=== PATIENT | female | born 1995 | race Caucasian/White ===

== ENCOUNTER 2016-08-10 19:17 | Emergency (ER) | payer BC, MEDICAID ==
[2016-08-10 19:37] VITALS: BP 136/68
[2016-08-10] MEDS ORDERED: Ketorolac INJ* 30 MG/ML 1 ML VIAL IV ONE (20:16)
[2016-08-10] MEDS ORDERED: diPHENhydraMINE IV* 50 MG/ML 1 ml VIAL (BENADRYL) IV ONE (20:16)
[2016-08-10] MEDS ORDERED: Metoclopramide IV* 5 MG/ML 2 ML VIAL IV ONE (20:16)
[2016-08-10] MEDS ORDERED: NS 0.9% 1000 ML* 1,000 ML IV ONE (20:17)
--- NOTE | 2016-08-11 12:20 | ED ---
Jose A Noriega Billy, scribed for Arash Arevalo MD on 08/10/16 at 2010 . Headache - HPI Summary HPI Summary: Patient is a 20 year-old female with a history of migraine headaches coming to the ED with a consistent headache for the last 2 days. She reports diffuse frontal throbbing, which she states is very typical of her previous headaches. She reports intermittent nausea, lightheadedness, dizziness, and photophobia over the last 2 days, but she has none of these symptoms at this time. Denies any vomiting. She usually takes Excedrin for her headaches. Her migraines occur approximately 1-2 times a month, although not regularly. - History Of Current Complaint Chief Complaint: EDHeadache Stated Complaint: HEADACHE X2DAYS Time Seen by Provider: 08/10/16 20:10 Hx Obtained From: Patient Onset/Duration: Gradual Onset, Started days ago, Still Present Initially Headache Was: Moderate Currently Pain Is: Moderate Timing: Constant Character: Migraine Location of Headache: Frontal Aggravating Factor: Bright Lights Allevating Factors: Nothing Associated Signs And Symptoms: Dizziness, Nausea, Visual Changes - photophobia, Other (Noted In Comments) - lightheadedness - Allergies/Home Medications Allergies/Adverse Reactions: Allergies Allergy/AdvReac Type Severity Reaction Status Date / Time Carbamazepine [From Tegretol] Allergy Rash Verified 06/13/16 13:28 Oxcarbazepine Allergy Rash Verified 06/13/16 13:28 [From Trileptal] Sulfa Drugs Allergy Rash Verified 06/13/16 13:28 PMH/Surg Hx/FS Hx/Imm Hx Endocrine/Hematology History: Denies: Hx Diabetes Cardiovascular History: Denies: Hx Congestive Heart Failure, Hx Hypertension, Hx Pacemaker/ICD History: Denies: Hx Dialysis, Hx Renal Disease Sensory History: Denies: Hx Hearing Aid Neurological History: Reports: Hx Migraine, Hx Seizures Psychiatric History: Denies: Hx Panic Disorder Infectious Disease History: No Infectious Disease History: Denies: Traveled Outside the [place] in Last 30 Days - Family History Known Family History: Positive: Other - Migraines Negative: Hypertension, Diabetes - Social History Alcohol Use: Occasionally Hx Substance Use: No Substance Use Type: Reports: None Substance Use Comment - Amount & Last Used: last used "1 month ago" Hx Tobacco Use: No Smoking Status (MU): Never Smoked Tobacco Review of Systems Positive: Photophobia - none at this time Positive: Nausea. Negative: Vomiting Neurological: Other - lightheaded, dizzy Positive: Headache All Other Systems Reviewed And Are Negative: Yes Physical Exam Triage Information Reviewed: Yes Vital Signs On Initial Exam: Initial Vitals Temp Pulse Resp BP Pulse Ox 98 F 96 18 136/68 100 08/10/16 19:35 08/10/16 19:35 08/10/16 19:35 08/10/16 19:35 08/10/16 19:35 Vital Signs Reviewed: Yes Appearance: Positive: Well-Appearing, No Pain Distress Skin: Positive: Warm, Skin Color Reflects Adequate Perfusion, Dry Head/Face: Positive: Normal Head/Face Inspection Eyes: Positive: Normal ENT: Positive: Normal ENT inspection Neck: Positive: Supple, Nontender Respiratory/Lung Sounds: Positive: Clear to Auscultation, Breath Sounds Present Cardiovascular: Positive: RRR Abdomen Description: Positive: Nontender, Soft Bowel Sounds: Positive: Present Musculoskeletal: Positive: Normal Neurological: Positive: Normal, Sensory/Motor Intact, Alert, Oriented to Person Place, Time, CN Intact II-III Psychiatric: Positive: Normal, Affect/Mood Appropriate AVPU Assessment: Alert Diagnostics - Vital Signs Vital Signs Temp Pulse Resp BP Pulse Ox 08/10/16 19:35 98 F 96 18 136/68 100 - Laboratory Lab Statement: Any lab studies that have been ordered have been reviewed, and results considered in the medical decision making process. Re-Evaluation - Re-Evaluation First Eval Re-Evaluation Time: 22:20 Change: Improved Headache Course/Dx - Course Course Of Treatment: Katelynn Padilla presented with a typical migraine that she had had for two days. A left-sided, throbbing HERNANDEZ accomanied by nausea. She got better with a 'migraine cocktail' of toradol, benadryl, reglan and IV fluids. - Diagnoses Provider Diagnoses: Migraine Discharge - Discharge Plan Condition: Stable Disposition: HOME Patient Education Materials: Migraine Headache (ED) Referrals: Zenobia Wright MD [Primary Care Provider] - The documentation as recorded by the Jose A gonzáles Billy accurately reflects the service I personally performed and the decisions made by me, Arash Arevalo MD.
== END 2016-08-10 23:36 | disposition home or self-care (01) ==
LOC: ED 19:17
DX: G43.909 Migraine, unspecified, not intractable, without status migrainosus (principal)
CPT/HCPCS: 96360; 96365; 96374; 96375; 99282; J1200; J1885; J2765

== ENCOUNTER 2016-08-26 06:13 | Day surgery (SDC) | payer BC ==
[~2016-08-26 06:13] MED LIST: Buffered Lidocaine 1% SYR 3ML* 3 ML/SYR SYRINGE INTRADERM ONE; Buffered Lidocaine 1% SYR 3ML* 3 ML/SYR SYRINGE ONE; Dexamethasone IV* 4 MG/ML 1 ML (4 MG) IV SLOW PU ONE; Dexamethasone IV* 4 MG/ML 1 ML (4 MG) ONE; Famotidine IV* 10 MG/ML 2 ML (20 mg) IV ONE; Famotidine IV* 10 MG/ML 2 ML (20 mg) ONE; ceFAZolin 2 GM PREMIX (*) 2 GM/50 ML BAG IVPB ONE
[2016-08-26 06:44] LABS: UR Preg Internal Control QC Line Present
[2016-08-26] MEDS ORDERED: methylPREDNISolone ACETATE 80* 80 MG/ML 1 ML VIAL ONE (07:05)
[2016-08-26] MEDS ORDERED: EPINEPHrine AMP 1 MG/ML ONE (07:06)
[2016-08-26] MEDS ORDERED: Bupivacaine 0.5% SDV PF* 30 ML VIAL ONE (07:06)
[2016-08-26] MEDS ORDERED: DiMENhydriNATE IV* 50 MG/ML VIAL IV PUSH PRN (07:19)
[2016-08-26] MEDS ORDERED: oxyCODONE/Acetamin 5/325 MG* TAB PO PRN (07:19)
[2016-08-26] MEDS ORDERED: fentaNYL* 50 MCG/ML 2 ML VIAL (100 MCG VIAL) IV PRN (07:19)
[2016-08-26] MEDS ORDERED: Ondansetron INJ* 2 MG/ML VIAL IV PRN (07:19)
[2016-08-26] MEDS ORDERED: fentaNYL* 50 MCG/ML 5 ML VIAL (250 MCG VIAL) ONE (07:21)
[2016-08-26] MEDS ORDERED: Lidocaine 2% MPF* 2 ML VIAL ONE (07:21)
[2016-08-26] MEDS ORDERED: Ketorolac INJ* 30 MG/ML 1 ML VIAL ONE (07:21)
[2016-08-26] MEDS ORDERED: Midazolam* 1 MG/ML 5 ML VIAL (5 MG) ONE (07:21)
[2016-08-26] MEDS ORDERED: Ondansetron INJ* 2 MG/ML VIAL ONE (07:21)
[2016-08-26] MEDS ORDERED: Propofol* 10 MG/ML 20 ML BTL IV PUSH ONE (07:21)
[2016-08-26] MEDS ORDERED: Phenylephrine IV* 40 MCG/ML 10 ML SYRINGE ONE (07:47)
[2016-08-26] MEDS ORDERED: EPHEDrine (Pressors)* 50 MG/ML VIAL ONE (07:47)
[2016-08-26] MEDS ORDERED: fentaNYL* 50 MCG/ML 2 ML VIAL (100 MCG VIAL) ONE (09:11)
[2016-08-26] MEDS ORDERED: oxyCODONE/Acetamin 5/325 MG* TAB ONE (09:23)
[2016-08-26 10:18] VITALS: BP 110/79
--- NOTE | 2016-08-27 15:11 | OP ---
DATE OF OPERATION: 08/26/16 - [facility] DATE OF : 89 SURGEON: Shannan Nova MD [employer] CHIEF: ANNE MARIE Lawrence ANESTHESIOLOGIST: Dr. Prado. ANESTHESIA: General. PRE-OP DIAGNOSES: Right knee chronic pain and recurrent effusions. POST-OP DIAGNOSIS: Right knee anterior synovitis with impingement. OPERATIVE PROCEDURE: Right knee arthroscopy with anterior synovectomy and synovial biopsy. INDICATIONS: Ms. Padilla is a 20-year-old female with several months of right knee pain and recurrent effusions. Radiographs and MRI failed to show a specific ligamentous or meniscal tear. I felt that the patient had large amounts of anterior soft tissue and possible medial plica. The patient failed conservative treatment with antiinflammatories, pain medication, and physical therapy. She continued to have severe pain and effusion limiting her daily activities. She wished to proceed with right knee diagnostic arthroscopy. Informed consent was obtained from the patient. She understood the risks of the procedure included but were not limited to bleeding, infection, damage to nearby structures, continued pain, need for further surgery, stroke, heart attack, blood clot, and . She wished to proceed. SPECIMEN: Synovial specimens from the right knee joint sent to Pathology for evaluation. ESTIMATED BLOOD LOSS: Less than 25 cc. COMPLICATIONS: None. INTRAOPERATIVE FINDINGS: Intraoperatively, the patient had no obvious meniscal or ligamentous tear. Her cartilage was intact without any degenerative changes. She had very small medial plica but she did have a large amount of anterior synovitis and soft tissue which impinge with knee range of motion in the patellofemoral compartment. DESCRIPTION OF PROCEDURE: Ms. Padilla was identified in the preanesthesia unit. Her right lower extremity was marked as the correct operative side. Informed consent was signed and placed in the chart. The patient was taken to the operating room and placed under general anesthesia. The right lower extremity was prepped and draped in the usual sterile fashion. Preop time-out was made to correctly identify the patient's side and site. Appropriate perioperative antibiotics were given within 1 hour of incision. Standard 0.5-cm anterolateral portal incision was made with a 15-blade and carried down through the capsule. The trocar was introduced. As soon as the light and water sources were turned on, there was immediate visualization of the suprapatellar pouch. A tour of the knee joint was performed. Suprapatellar pouch had no obvious abnormality. Patellofemoral compartment showed no obvious cartilage degeneration. There was a large amount of soft tissue and synovitis anteriorly in the knee joint, which did impinge in the patellofemoral compartment medially with range of motion of the knee. Patella tracked well. A small medial plica. Medial gutter showed no loose body. Medial compartment showed no obvious meniscal tear or cartilage changes. ACL appeared to be intact. Once again, a large amount of anterior soft tissue and synovitis was noted. The knee was placed in figure-of-4 position. Lateral compartment showed no cartilage damage or meniscal tear. Under direct visualization, a medial portal incision was made with a 15 blade. A probe was introduced and a second tour of the knee joint was performed. No additional findings were noted. Shaver and radiofrequency ablation wand were used to perform anterior synovectomy. Specimen was sent for synovial biopsy to Pathology. Soft tissue was cleared in a conservative fashion until there was no longer impingement with knee range of motion. The knee was copiously irrigated with sterile saline. The instruments were carefully removed and the incisions were closed using interrupted 3-0 nylon suture. An intraarticular injection of 8 cc of 0.5% Marcaine was placed in the knee joint. The patient's incisions were dressed with Xeroform, 4x4's, Webril, Celestino wrap, and cold pack. Her anesthesia was reversed and she was taken to the PACU in stable condition. Intended weightbearing will be weightbearing as tolerated. Intended DVT prophylaxis will be aspirin. [id number]/[facility] #: [id number] JEREMIAH
== END 2016-08-26 10:09 | disposition home or self-care (01) ==
LOC: OR 06:13
PROVIDERS: ATTEND Orthopaedic Surgery Adult Reconstructive Orthopaedic Surgery
DX: M65.861 Other synovitis and tenosynovitis, right lower leg (principal); M25.861 Other specified joint disorders, right knee; G40.909 Epilepsy, unspecified, not intractable, without status epilepticus; F90.9 Attention-deficit hyperactivity disorder, unspecified type
CPT/HCPCS: 81025; 88305; A9270-GY; J0171; J0690; J1040; J1100; J1885; J2250; J2405; J2704; J3010

== ENCOUNTER 2016-10-10 23:06 | Emergency (ER) | payer BC ==
[2016-10-10 23:14] VITALS: BP 131/80
[2016-10-11 01:12] LABS: UR Preg Internal Control QC Line Present
[2016-10-11 01:50] LABS: Urine Bilirubin Negative (Negative); Urine Glucose Negative (Negative); Urine Nitrite Negative (Negative)
--- NOTE | 2016-10-12 09:19 | ED ---
Sid Noriega Aidan, scribed for Romulo Beal MD on 10/11/16 at 0218 . Dizziness - HPI Summary HPI Summary: 20 y/o female presents to the ED with a complaint of acute, moderate episodes of dizziness and lightheadedness that began yesterday. Movement and standing up aggravates her dizziness. Associated symptoms include some weakness earlier today, dark urine and nausea. Pt denies any body aches, vomiting, diarrhea, fever, sweats, chills, CP, SOB, abdominal pain, or sore throat. She claims to be eating and drinking normally. Her last period occurred at the beginning of last month. - History Of Current Complaint Chief Complaint: EDDizziness Stated Complaint: WEAKNESS/LIGHT HEADED/DIZZY Time Seen by Provider: 10/11/16 01:04 Hx Obtained From: Patient Onset/Duration: Still Present Timing: Constant Severity Initially: Moderate Severity Currently: Mild Character: Lightheaded, Weak, Dizzy Aggravating Factor(s): Supine To Erect, Other - movement Alleviating Factor(s): Other - unknown Associated Signs And Symptoms: Positive: Nausea, Other: - weakness, dark urine - Allergies/Home Medications Allergies/Adverse Reactions: Allergies Allergy/AdvReac Type Severity Reaction Status Date / Time Carbamazepine [From Tegretol] Allergy Rash Verified 08/26/16 06:31 Oxcarbazepine Allergy Rash Verified 08/26/16 06:31 [From Trileptal] Sulfa Drugs Allergy Rash Verified 08/26/16 06:31 PMH/Surg Hx/FS Hx/Imm Hx Endocrine/Hematology History: Denies: Hx Diabetes Cardiovascular History: Denies: Hx Congestive Heart Failure, Hx Hypertension, Hx Pacemaker/ICD History: Denies: Hx Dialysis, Hx Renal Disease Sensory History: Reports: Hx Contacts or Glasses - GLASSES Denies: Hx Hearing Aid Opthamlomology History: Reports: Hx Contacts or Glasses - GLASSES Neurological History: Reports: Hx Migraine - FEW TIMES PER MONTH TREATS WITH EXCEDRIN MIGRAINE, Hx Seizures - FOCAL SEIZURES- LAST ONE YEARS AGO- ON MEDICATION FOR Psychiatric History: Denies: Hx Panic Disorder - Surgical History Surgery Procedure, Year, and Place: - 2 YEARS AGO-[place] Hx Anesthesia Reactions: No Infectious Disease History: No Infectious Disease History: Denies: Traveled Outside the [place] in Last 30 Days - Family History Known Family History: Positive: Other - Migraines Negative: Hypertension, Diabetes Family History: R & n/C - Social History Occupation: Employed Full-time Lives: With Family Alcohol Use: None Hx Substance Use: No Substance Use Type: Reports: None Substance Use Comment - Amount & Last Used: last used "1 month ago" Hx Tobacco Use: No Smoking Status (MU): Never Smoked Tobacco Review of Systems Constitutional: Other - dizziness/lightheadedness Negative: Fever, Chills, Fatigue, Skin Diaphoresis Negative: Photophobia, Blurred Vision, Diplopia, Drainage, Erythema Negative: Epistaxis, Dental Pain, Sore Throat, Ear Ache, Nasal Discharge Negative: Palpitations, Chest Pain Negative: Shortness Of Breath, Cough Positive: Nausea. Negative: Abdominal Pain, Vomiting, Diarrhea Genitourinary: Other - dark urine Negative: burning, dysuria, discharge, frequency, flank pain, hematuria, incontinence, pain, urgency Negative: Arthralgia, Myalgia, Decreased ROM, Edema Negative: Rash, Bruising Positive: Weakness. Negative: Headache, Paresthesia, Numbness, Syncope, Slurred Speech Negative: Anxious, Depressed All Other Systems Reviewed And Are Negative: Yes Physical Exam - Summary Physical Exam Summary: Constitutional: Well-developed, Well-nourished, Alert. (-) Distressed Skin: Warm, Dry HENT: Normocephalic; Atraumatic Eyes: Conjunctiva normal Neck: Musculoskeletal ROM normal neck. (-) JVD, (-) Stridor, (-) Tracheal deviation Cardio: Rhythm regular, rate normal, Heart sounds normal; Intact distal pulses; The pedal pulses are 2+ and symmetric. Radial pulses are 2+ and symmetric. (-) Murmur Pulmonary/Chest wall: Effort normal. (-) Respiratory distress, (-) Wheezes, (-) Rales Abd: Soft, (-) Tenderness, (-) Distension, (-) Guarding, (-) Rebound Musculoskeletal: (-) Edema Lymph: (-) Cervical adenopathy Neuro: Alert, Oriented x3 Psych: Mood and affect Normal DRY MUCOUS MEMBRANES Triage Information Reviewed: Yes Vital Signs On Initial Exam: Initial Vitals Temp Pulse Resp BP Pulse Ox 97.3 F 99 20 131/80 100 10/10/16 23:11 10/10/16 23:11 10/10/16 23:11 10/10/16 23:11 10/10/16 23:11 Vital Signs Reviewed: Yes - Angelique Coma Scale Coma Scale Total: 15 Diagnostics - Vital Signs Vital Signs Temp Pulse Resp BP Pulse Ox 10/10/16 23:11 97.3 F 99 20 131/80 100 - Laboratory Lab Results: Lab Results 10/11/16 Range/Units 01:00 Urine Color Yellow Urine Appearance Clear Urine pH 6.0 (5-9) Ur Specific Maud 1.026 (1.010-1.030) Urine Protein Negative (Negative) Urine Ketones Negative (Negative) Urine Blood Negative (Negative) Urine Nitrate Negative (Negative) Urine Bilirubin Negative (Negative) Urine Urobilinogen Negative (Negative) Ur Leukocyte Esterase Negative (Negative) Urine Glucose Negative (Negative) Urine Ascorbic Acid * H (Negative) Urine Test Negative (Negative) Lab Statement: Any lab studies that have been ordered have been reviewed, and results considered in the medical decision making process. Dizzy Course/Dx - Course Course Of Treatment: Pt is tollerating oral fluids and ambulation. - Diagnoses Provider Diagnoses: Dehydration Discharge - Discharge Plan Condition: Stable Disposition: HOME Discharge Disposition Comment: Please follow up with your primary care physician within 2 days. Patient Education Materials: Dehydration (ED) Forms: *Work Release Referrals: Zenobia Wright MD [Primary Care Provider] - The documentation as recorded by the Sid gonzáles Aidan accurately reflects the service I personally performed and the decisions made by , Romulo Beal MD.
== END 2016-10-11 02:42 | disposition home or self-care (01) ==
LOC: ED 23:06
DX: E86.0 Dehydration (principal); G40.909 Epilepsy, unspecified, not intractable, without status epilepticus; Z88.2 Allergy status to sulfonamides
CPT/HCPCS: 81003; 81025; 99282

== ENCOUNTER → 2017-01-27 12:57 | Emergency (ER) | payer SELFPAY ==
[2017-01-27 13:11] VITALS: BP 127/64
--- NOTE | 2017-01-27 14:33 | RAD ---
Indication: Right rib injury. 4 views of the right ribs are reviewed. There is a fracture of the right seventh and eighth rib anterolaterally. The right eighth rib may be slightly displaced. IMPRESSION: Likely fractures of the right seventh and eighth ribs anterolaterally.
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
== END | disposition home or self-care (01) ==
LOC: ED 12:57
DX: S22.41XA Multiple fractures of ribs, right side, initial encounter for closed fracture (principal); W50.0XXA Accidental hit or strike by another person, initial encounter; Y93.9 Activity, unspecified; Y92.9 Unspecified place or not applicable; Y99.9 Unspecified external cause status
CPT/HCPCS: 99282

== ENCOUNTER 2017-01-28 20:27 | Emergency (ER) | payer SELFPAY ==
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
[2017-01-29] MEDS ORDERED: oxyCODONE/Acetamin 5/325 MG* TAB PO ONE (00:44)
[2017-01-29 01:29] VITALS: BP 136/70
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
== END 2017-01-29 01:27 | disposition home or self-care (01) ==
LOC: ED 20:27
DX: S22.39XD Fracture of one rib, unspecified side, subsequent encounter for fracture with routine healing (principal); W50.1XXD Accidental kick by another person, subsequent encounter; R05 Cough; R06.02 Shortness of breath; G43.909 Migraine, unspecified, not intractable, without status migrainosus; R56.9 Unspecified convulsions; Z88.2 Allergy status to sulfonamides; Z88.8 Allergy status to other drugs, medicaments and biological substances
CPT/HCPCS: 71020; 99281

== ENCOUNTER 2017-04-19 22:22 | Emergency (ER) | payer SELFPAY ==
[2017-04-20] MEDS ORDERED: oxyCODONE/Acetamin 5/325 MG* TAB PO ONE (01:33)
--- NOTE | 2017-04-20 01:33 | ED ---
HPI Chest Pain - HPI Summary HPI Summary: 21F presents with left lateral rib pain for couple days. She had fracture a month ago of her ribs. She takes the area was healing well but she feels that she is moving her arm more and that it is pulling on the area. She was at work and had an intense pain. She denies any new injury. She states when she takes a deep breath it hurts her ribs. She denies any SOB though. She denies any family history of blood clots or recent travel. She denies any swelling in her calfs or pain there. she denies any chest pain stating it is superficial rib pain. she denies any cough. - History of Current Complaint Chief Complaint: EDChestWallPain Time Seen by Provider: 04/20/17 00:31 Pain Intensity: 10 - Allergy/Home Medications Allergies/Adverse Reactions: Allergies Allergy/AdvReac Type Severity Reaction Status Date / Time Carbamazepine [From Tegretol] Allergy Rash Verified 04/19/17 22:54 Oxcarbazepine Allergy Rash Verified 04/19/17 22:54 [From Trileptal] Sulfa Drugs Allergy Rash Verified 04/19/17 22:54 PMH/Surg Hx/FS Hx/Imm Hx Endocrine/Hematology History: Denies: Hx Diabetes Cardiovascular History: Denies: Hx Congestive Heart Failure, Hx Hypertension, Hx Pacemaker/ICD History: Denies: Hx Dialysis, Hx Renal Disease Sensory History: Reports: Hx Contacts or Glasses - GLASSES Denies: Hx Hearing Aid Opthamlomology History: Reports: Hx Contacts or Glasses - GLASSES Neurological History: Reports: Hx Migraine - FEW TIMES PER MONTH TREATS WITH EXCEDRIN MIGRAINE, Hx Seizures - FOCAL SEIZURES- LAST ONE YEARS AGO- ON MEDICATION FOR Psychiatric History: Denies: Hx Panic Disorder - Surgical History Surgery Procedure, Year, and Place: - 2 YEARS AGO-[place] Hx Anesthesia Reactions: No Infectious Disease History: No Infectious Disease History: Denies: Traveled Outside the [place] in Last 30 Days - Family History Known Family History: Positive: None, Other - Migraines Negative: Hypertension, Diabetes, Blood Disorder Family History: R & n/C - Social History Alcohol Use: Rare Hx Substance Use: No Substance Use Type: Reports: None Substance Use Comment - Amount & Last Used: last used "1 month ago" Hx Tobacco Use: No Smoking Status (MU): Never Smoked Tobacco Review of Systems Negative: Fever Positive: Other - left lateral rib pain Negative: Shortness Of Breath All Other Systems Reviewed And Are Negative: Yes Physical Exam Triage Information Reviewed: Yes Vital Signs On Initial Exam: Initial Vitals Temp Pulse Resp BP Pulse Ox 98 F 89 16 126/78 100 04/19/17 22:55 04/19/17 22:55 04/19/17 22:55 04/19/17 22:55 04/19/17 22:55 Vital Signs Reviewed: Yes Appearance: Positive: Pain Distress Skin: Positive: Warm, Dry Head/Face: Positive: Normal Head/Face Inspection Eyes: Positive: Normal, EOMI, SUZANNE, Conjunctiva Clear ENT: Positive: Normal ENT inspection, Pharynx normal, TMs normal Respiratory/Lung Sounds: Positive: Clear to Auscultation, Breath Sounds Present , Other - tender over lateral left ribs 7-10 to palpation Cardiovascular: Positive: Normal, RRR - [place] Coma Scale Coma Scale Total: 15 Diagnostics - Vital Signs Vital Signs Temp Pulse Resp BP Pulse Ox 04/20/17 01:00 76 17 117/70 99 04/20/17 00:30 84 102/62 99 04/20/17 00:29 95 99 04/19/17 22:55 98 F 89 16 126/78 100 - Laboratory Lab Statement: Any lab studies that have been ordered have been reviewed, and results considered in the medical decision making process. Chest Pain Course/Dx - Course Course Of Treatment: 21F presents with left lateral rib pain for couple days. She had fracture a month ago of her ribs. She takes the area was healing well but she feels that she is moving her arm more and that it is pulling on the area. She was at work and had an intense pain. She denies any new injury. She states when she takes a deep breath it hurts her ribs. She denies any SOB though. on exam tender over ribs 7-10 on left lateral aspect. xray read as normal by me. discused with patient she is essentaially because she took ibuprofen and she is having too much break through pain. discussed with give one percocet and told to follow up with primary. patient understands and agrees with plan. - Chest Pain Differential Diagnosis/HQI/PQRI: Lower Respiratory Infection, Pulmonary Embolism , Other: - fracture, costrochondritis - Diagnoses Provider Diagnoses: Rib pain Discharge - Discharge Plan Condition: Good Disposition: HOME Patient Education Materials: Chest Wall Pain (ED) Referrals: Zenobia Wright MD [Primary Care Provider] - Additional Instructions: Take deep breath throughout the day Take Ibuprofen or Tylenol for pain every 6 hours Follow up with primary care physician within 5 days Return to ED if develop new productive cough with fever, or any new or worsening symptoms
[2017-04-20 01:47] VITALS: BP 113/49
--- NOTE | 2017-04-20 07:48 | RAD ---
HISTORY: Left-sided rib pain COMPARISONS: January 27, 2017 VIEWS: 6, Frontal view of the chest with frontal and oblique views of the left hemithorax FINDINGS: There is no displaced rib fracture or pneumothorax. The visualized lungs are clear. The right-sided fractures noted on the previous examination are not well-visualized on these images, including dedicated views of the left hemithorax. IMPRESSION: NO DISPLACED RIB FRACTURE OR PNEUMOTHORAX. IF THERE IS PERSISTENT CLINICAL CONCERN FOR OSSEOUS PATHOLOGY OF THE RIBS, BONE SCANNING MAY BE MORE SENSITIVE.
== END 2017-04-20 01:59 | disposition home or self-care (01) ==
LOC: ED 22:22
DX: R07.81 Pleurodynia (principal)
CPT/HCPCS: 99282; A9270-GY

== ENCOUNTER 2017-06-28 16:23 | Emergency (ER) | payer SELFPAY ==
[2017-06-28 16:39] VITALS: BP 132/75
[2017-06-28 17:07] LABS: Hematocrit 42 % (35-47); Hemoglobin 14.1 g/dl (12.0-16.0); Mean Corpuscular HGB Conc 33 g/dl (31-36); Mean Corpuscular Hemoglobin 28 pg (27-31); Mean Corpuscular Volume 84 fL (80-97); Mean Platelet Volume 7 um3 (7.4-10.4); Red Blood Count 5.05 10^6/ul (4.0-5.4); Red Cell Distribution Width 15 % (10.5-15); Urine Bilirubin Negative (Negative); Urine Glucose Negative (Negative); Urine Nitrite Negative (Negative); White Blood Count 10.3 10^3/ul (3.5-10.8)
[2017-06-28 17:20] LABS: ALT 10 U/L (7-52); AST 12 U/L (13-39); Albumin 4.7 g/dL (3.2-5.2); Alkaline Phosphatase 53 U/L (34-104); Anion Gap 8 mmol/L (2-11); BUN/Creatinine Ratio 15.3 (8-20); Blood Urea Nitrogen 11 mg/dL (6-24); CO2 Carbon Dioxide 22 mmol/L (22-32); Calcium 9.6 mg/dL (8.6-10.3); Chloride 107 mmol/L (101-111); EGFR African American 131.5 (>60); EGFR Non-African American 102.3 (>60); Globulin 3.1 g/dL (2-4); Glucose 83 mg/dL (70-100); Potassium 3.5 mmol/L (3.5-5.0); Sodium 137 mmol/L (133-145); Total Protein 7.8 g/dL (6.4-8.9)
[2017-06-28 17:23] LABS: Benzodiazepine Urine Screen None Detected (None Detect)
--- NOTE | 2017-06-28 17:23 | ED ---
Psychiatric Complaint - HPI Summary HPI Summary: 21F presents with suicidal thoughts last night. She lost her mother 3 months ago and since then has been more depressed. She has history of depression and it has been getting worst. She started to cut last night. She denies any plan for suicide. She denies any drug or ETOH use. She spoke with her boss today who advised her to come in for an exam. She sees [facility]. - History Of Current Complaint Chief Complaint: EDMentalHealth Time Seen by Provider: 06/28/17 16:48 - Allergies/Home Medications Allergies/Adverse Reactions: Allergies Allergy/AdvReac Type Severity Reaction Status Date / Time Carbamazepine [From Tegretol] Allergy Rash Verified 04/19/17 22:54 Oxcarbazepine Allergy Rash Verified 04/19/17 22:54 [From Trileptal] Sulfa Drugs Allergy Rash Verified 04/19/17 22:54 PMH/Surg Hx/FS Hx/Imm Hx Endocrine/Hematology History: Denies: Hx Diabetes Cardiovascular History: Denies: Hx Congestive Heart Failure, Hx Hypertension, Hx Pacemaker/ICD History: Denies: Hx Dialysis, Hx Renal Disease Sensory History: Reports: Hx Contacts or Glasses - GLASSES Denies: Hx Hearing Aid Opthamlomology History: Reports: Hx Contacts or Glasses - GLASSES Neurological History: Reports: Hx Migraine - FEW TIMES PER MONTH TREATS WITH EXCEDRIN MIGRAINE, Hx Seizures - FOCAL SEIZURES- LAST ONE YEARS AGO- ON MEDICATION FOR Psychiatric History: Denies: Hx Panic Disorder - Surgical History Surgery Procedure, Year, and Place: - 2 YEARS AGO-[place] Hx Anesthesia Reactions: No Infectious Disease History: No Infectious Disease History: Denies: Traveled Outside the US in Last 30 Days - Family History Known Family History: Positive: None, Other - Migraines Negative: Hypertension, Diabetes, Blood Disorder Family History: R & n/C - Social History Alcohol Use: Rare Hx Substance Use: No Substance Use Type: Reports: None Substance Use Comment - Amount & Last Used: last used "1 month ago" Hx Tobacco Use: No Smoking Status (MU): Never Smoked Tobacco Review of Systems Negative: Fever Negative: Chest Pain Negative: Shortness Of Breath Positive: Depressed All Other Systems Reviewed And Are Negative: Yes Physical Exam Triage Information Reviewed: Yes Vital Signs On Initial Exam: Initial Vitals Temp Pulse Resp BP Pulse Ox 97.8 F 96 16 132/75 100 06/28/17 16:36 06/28/17 16:36 06/28/17 16:36 06/28/17 16:36 06/28/17 16:36 Vital Signs Reviewed: Yes Appearance: Positive: Well-Appearing Skin: Positive: Warm, Dry Head/Face: Positive: Normal Head/Face Inspection Eyes: Positive: Normal, Conjunctiva Clear Respiratory/Lung Sounds: Positive: Clear to Auscultation, Breath Sounds Present Cardiovascular: Positive: Normal, RRR Abdomen Description: Positive: Nontender, Soft Bowel Sounds: Positive: Present Musculoskeletal: Positive: Normal Neurological: Positive: Normal Psychiatric: Positive: Depressed Diagnostics - Vital Signs Vital Signs Temp Pulse Resp BP Pulse Ox 06/28/17 16:36 97.8 F 96 16 132/75 100 - Laboratory Lab Results: Lab Results 06/28/17 06/28/17 06/28/17 Range/Units 16:55 16:55 16:55 WBC 10.3 (3.5-10.8) 10^3/ul RBC 5.05 (4.0-5.4) 10^6/ul Hgb 14.1 (12.0-16.0) g/dl Hct 42 (35-47) % MCV 84 (80-97) fL MCH 28 (27-31) pg MCHC 33 (31-36) g/dl RDW 15 (10.5-15) % Plt Count 357 (150-450) 10^3/ul MPV 7 L (7.4-10.4) um3 Neut % (Auto) 51.1 (38-83) % Lymph % (Auto) 39.8 (25-47) % [place] % (Auto) 7.5 (1-9) % Eos % (Auto) 0.9 (0-6) % Baso % (Auto) 0.7 (0-2) % Absolute Neuts (auto) 5.2 (1.5-7.7) 10^3/ul Absolute Lymphs (auto) 4.1 (1.0-4.8) 10^3/ul Absolute Monos (auto) 0.8 (0-0.8) 10^3/ul Absolute Eos (auto) 0.1 (0-0.6) 10^3/ul Absolute Basos (auto) 0.1 (0-0.2) 10^3/ul Absolute Nucleated RBC 0 10^3/ul Nucleated RBC % 0 Sodium 137 (133-145) mmol/L Potassium 3.5 (3.5-5.0) mmol/L Chloride 107 (101-111) mmol/L Carbon Dioxide 22 (22-32) mmol/L Anion Gap 8 (2-11) mmol/L BUN 11 (6-24) mg/dL Creatinine 0.72 (0.51-0.95) mg/dL Est GFR ( Amer) 131.5 (>60) Est GFR (Non-Af Amer) 102.3 (>60) BUN/Creatinine Ratio 15.3 (8-20) Glucose 83 (70-100) mg/dL Calcium 9.6 (8.6-10.3) mg/dL Total Bilirubin 0.30 (0.2-1.0) mg/dL AST 12 L (13-39) U/L ALT 10 (7-52) U/L Alkaline Phosphatase 53 (34-104) U/L Total Protein 7.8 (6.4-8.9) g/dL Albumin 4.7 (3.2-5.2) g/dL Globulin 3.1 (2-4) g/dL Albumin/Globulin Ratio 1.5 (1-3) TSH Pending Urine Color Straw Urine Appearance Clear Urine pH 7.0 (5-9) Ur Specific [place] 1.005 L (1.010-1.030) Urine Protein Negative (Negative) Urine Ketones Negative (Negative) Urine Blood Negative (Negative) Urine Nitrate Negative (Negative) Urine Bilirubin Negative (Negative) Urine Urobilinogen Negative (Negative) Ur Leukocyte Esterase Negative (Negative) Urine Glucose Negative (Negative) Salicylates Pending Acetaminophen Pending Serum Alcohol Pending Result Diagrams: 06/28/17 16:55 06/28/17 16:55 Lab Statement: Any lab studies that have been ordered have been reviewed, and results considered in the medical decision making process. Course/Dx - Course Course Of Treatment: 21F presents with suicidal thoughts last night. She lost her mother 3 months ago and since then has been more depressed. She has history of depression and it has been getting worst. She started to cut last night. She denies any plan for suicide. She denies any drug or ETOH use. She spoke with her boss today who advised her to come in for an exam. She sees [facility]. normal PE. medically clear for MHE. signed out to [place] pending MHE. - Differential Dx/Clinical Impression Differential Diagnosis/HQI/PQRI: Positive: Anxiety, Depression, Suicidal Ideation Provider Diagnosis: Depression Discharge - Discharge Plan Condition: Stable Disposition: OTHER Discharge Disposition Comment: signed out to [place] KENNEY pending MHE Referrals: Zenobia Wright MD [Primary Care Provider] -
[2017-06-28 17:31] LABS: Acetaminophen < 15 mcg/mL; Alcohol < 10 mg/dL (<10); Salicylate < 2.50 mg/dL (<30)
[2017-06-28 17:46] LABS: TSH (Thyroid Stimulating Horm) 2.81 mcIU/mL (0.34-5.60)
--- NOTE | 2017-06-28 23:51 | PN ---
Progress Note - Progress Note Date of Service: 06/28/17 SOAP: Subjective: [Patient was a sign out from Kristina Pitt PA-C at shift change pending psych eval. ] Objective: [CTA RRR] Assessment: [grief reaction] Plan: [decided by Dr Prado at 11pm that patient was safe to discharge home with diagnosis of grief reaction with close follow up outpatient. agreed with plan and so did patient's father. Discharge: stable to home Diagnosis: grief reaction ]
== END 2017-06-28 23:42 ==
LOC: ED 16:23
DX: F32.9 Major depressive disorder, single episode, unspecified (principal)
CPT/HCPCS: 36415; 80053; 80307; 80320; 80329; 81003; 84443; 85025; 99284; G0480

== ENCOUNTER 2017-08-02 11:55 | Emergency (ER) | payer BC ==
[2017-08-02 12:07] VITALS: BP 115/66
--- NOTE | 2017-08-02 12:28 | UC ---
Respiratory Complaint HPI - HPI Summary HPI Summary: 2 days of upper and lower respiratory congestion, chest is tight and center hurts with deep breathing - History of Current Complaint Chief Complaint: UCRespiratory Stated Complaint: CONGESTION EAR PAIN Time Seen by Provider: 08/02/17 12:16 Hx Obtained From: Patient Hx Last Menstrual Period: uses implanon ?: No Onset/Duration: Sudden Onset, Lasting Days - 2, Still Present Timing: Constant Severity Initially: Mild Severity Currently: Mild Character: Cough: Nonproductive Aggravating Factors: Nothing Alleviating Factors: Nothing Associated Signs And Symptoms: Positive: Pleuritic Chest Pain, URI, Nasal Congestion - Allergies/Home Medications Allergies/Adverse Reactions: Allergies Allergy/AdvReac Type Severity Reaction Status Date / Time Carbamazepine [From Tegretol] Allergy Rash Verified 08/02/17 11:57 Oxcarbazepine Allergy Rash Verified 08/02/17 11:57 [From Trileptal] Sulfa Drugs Allergy Rash Verified 08/02/17 11:57 Home Medications: Home Medications Adgdcxv-Vdhxobmdlfhyr-Oyuqsydd [Excedrin Extra Strength] 1 tab PO PRN 08/02/17 [ History] PMH/Surg Hx/FS Hx/Imm Hx Previously Healthy: No Neurological History: Seizures - Surgical History Surgical History: None Surgery Procedure, Year, and Place: - 2 YEARS [facility] - Family History Known Family History: Positive: None, Other - Migraines Negative: Hypertension, Diabetes, Blood Disorder - Social History Occupation: Employed Full-time Lives: With Family Alcohol Use: Rare Substance Use Type: None Substance Use Comment - Amount & Last Used: last used "1 month ago" Smoking Status (MU): Never Smoked Tobacco Review of Systems Constitutional: Fatigue ENT: Sore Throat - with cough, Ear Ache, Nasal Discharge, Sinus Congestion Respiratory: Cough Cardiovascular: Chest Pain - with cough Gastrointestinal: Negative Genitourinary: Negative Motor: Negative Neurovascular: Negative Musculoskeletal: Negative Neurological: Negative Is Patient Immunocompromised?: No All Other Systems Reviewed And Are Negative: Yes Physical Exam Triage Information Reviewed: Yes Appearance: Well-Appearing, No Pain Distress, Well-Nourished Vital Signs: Initial Vital Signs Temp 97.9 F 08/02/17 12:03 Pulse 90 08/02/17 12:03 Resp 18 08/02/17 12:03 BP 115/66 08/02/17 12:03 Pulse Ox 100 08/02/17 12:03 Vital Signs Reviewed: Yes Eye Exam: Normal Eyes: Positive: Conjunctiva Clear ENT Exam: Normal ENT: Positive: Normal ENT inspection, Hearing grossly normal, Pharynx normal, Nasal congestion, Nasal drainage, TMs normal, Uvula midline. Negative: Tonsillar swelling, Tonsillar exudate, Trismus, Muffled voice, Hoarse voice, Dental tenderness, Sinus tenderness Dental Exam: Normal Neck exam: Normal Neck: Positive: Supple, Nontender, No Lymphadenopathy Respiratory Exam: Normal Respiratory: Positive: Chest non-tender, Lungs clear, Normal breath sounds, No respiratory distress, No accessory muscle use Cardiovascular Exam: Normal Cardiovascular: Positive: RRR, No Murmur, Pulses Normal, Brisk Capillary Refill Musculoskeletal Exam: Normal Musculoskeletal: Positive: Strength Intact, ROM Intact, No Edema Neurological Exam: Normal Neurological: Positive: Alert, Muscle Tone Normal, Fatigued Psychological Exam: Normal Psychological: Positive: Normal Response To Family Skin Exam: Normal UC Diagnostic Evaluation - Laboratory O2 Sat by Pulse Oximetry: 100 Respiratory Course/Dx - Course Course Of Treatment: flonase, albuterol, zithromax, rest increase fluids follow with pcp prn - Differential Dx/Diagnosis Provider Diagnoses: Bronchitis Discharge - Discharge Plan Condition: Stable Disposition: HOME Prescriptions: Albuterol HFA INHALER* [Ventolin HFA Inhaler*] 2 puff INH Q4H PRN #1 mdi PRN Reason: cough/chest congestion Azithromycin TAB* [Zithromax TAB (Z-SEBASTIAN) 250 mg #6 tabs] 2 tab PO .TODAY, THEN 1 DAILY #1 sebastian Fluticasone NASAL SPRAY 50MCG* [Flonase NASAL SPRAY 50MCG*] 2 spray BOTH NARES DAILY #1 btl Patient Education Materials: Acute Bronchitis (ED) Forms: *Work Release Referrals: Zenobia Wright MD [Primary Care Provider] - If Needed
== END 2017-08-02 12:44 | disposition home or self-care (01) ==
LOC: UCEAST 11:55
DX: J40 Bronchitis, not specified as acute or chronic (principal); R56.9 Unspecified convulsions; Z88.2 Allergy status to sulfonamides; Z88.8 Allergy status to other drugs, medicaments and biological substances
CPT/HCPCS: 99212; G0463

== ENCOUNTER 2017-09-13 14:47 | Emergency (ER) | payer BC ==
[2017-09-13 16:16] LABS: ABS Basophils 0.1 10^3/ul (0-0.2); ABS Eosinophils 0.1 10^3/ul (0-0.6); ABS Lymphocytes 3.4 10^3/ul (1.0-4.8); ABS Monocytes 0.6 10^3/ul (0-0.8); ABS Neutrophils 4.6 10^3/ul (1.5-7.7); ABS Nucleated RBC 0 10^3/ul; Eosinophil % 1.5 % (0-6); Hematocrit 39 % (35-47); Hemoglobin 13.4 g/dl (12.0-16.0); Lymphocyte % 38.9 % (25-47); Mean Corpuscular HGB Conc 35 g/dl (31-36); Mean Corpuscular Hemoglobin 29 pg (27-31); Mean Corpuscular Volume 83 fL (80-97); Mean Platelet Volume 7 um3 (7.4-10.4); Nucleated Red Blood Cells % 0.1; Platelet Count 309 10^3/ul (150-450); Red Blood Count 4.66 10^6/ul (4.0-5.4); Red Cell Distribution Width 14 % (10.5-15); White Blood Count 8.7 10^3/ul (3.5-10.8)
[2017-09-13 16:33] LABS: EGFR Non-African American 103.9 (>60)
[2017-09-13 16:45] LABS: Urine Appearance Clear; Urine Blood Negative (Negative); Urine Color Straw; Urine Ketones Negative (Negative); Urine Protein Negative (Negative); Urine Specific Gravity 1.013 (1.010-1.030); Urine Urobilinogen Negative (Negative)
--- NOTE | 2017-09-13 17:19 | RAD ---
INDICATION: Left adnexal pain. COMPARISON: Comparison is made with a prior pelvic ultrasound from from September 25, 2015. TECHNIQUE: Multiple real-time transabdominal images of the pelvis were obtained. FINDINGS: The uterus is normal in size, shape and echogenicity. The uterus measured 6.4 x 2.8 x 3.4 cm. The endometrial echo measured 0.5 cm in thickness. The right ovary measured 3.9 x 2.1 x 2.7 cm. The left ovary measured 2.8 x 1.7 x 3.6 cm. There is vascular flow within both ovaries. No free intraperitoneal fluid is seen. IMPRESSION: NEGATIVE EXAM.
--- NOTE | 2017-09-13 18:12 | ED ---
Philippe Noriega Thomas, scribed for Arash Aervalo MD on 09/13/17 at 1636 . Abdominal Pain/Female - HPI Summary HPI Summary: The patient is a 21 year old female complaining of left-sided abdominal pain that was present when she woke up this morning and has progressively worsened throughout the day when she was lifting at work. The patient additionally complains of nausea. The patient denies urinary symptoms, diarrhea, and constipation. LMP was three months ago. She is on the implant. - History of Current Complaint Chief Complaint: EDAbdPain Stated Complaint: ABD PAIN Time Seen by Provider: 09/13/17 15:30 Hx Last Menstrual Period: uses implanon Onset/Duration: Lasting Hours - onset this AM, Still Present Timing: Constant Severity Initially: Mild Severity Currently: Severe Pain Intensity: 9 Pain Scale Used: 0-10 Numeric Location: Discrete At: LUQ, Discrete At: LLQ Alleviating Factor(s): Nothing Associated Signs and Symptoms: Positive: Nausea. Negative: Fever, Constipation , Urinary Symptoms, Diarrhea Allergies/Adverse Reactions: Allergies Allergy/AdvReac Type Severity Reaction Status Date / Time carbamazepine Allergy Rash Verified 09/13/17 14:57 oxcarbazepine Allergy Rash Verified 09/13/17 14:57 Sulfa (Sulfonamide Allergy Rash Verified 09/13/17 14:58 Antibiotics) PMH/Surg Hx/FS Hx/Imm Hx Endocrine/Hematology History: Denies: Hx Diabetes, Hx Thyroid Disease Cardiovascular History: Denies: Hx Congestive Heart Failure, Hx Hypertension, Hx Pacemaker/ICD Respiratory History: Denies: Hx Asthma, Hx Chronic Obstructive Pulmonary Disease (COPD) GI History: Denies: Hx Ulcer History: Denies: Hx Dialysis, Hx Renal Disease Sensory History: Reports: Hx Contacts or Glasses - GLASSES Denies: Hx Hearing Aid Opthamlomology History: Reports: Hx Contacts or Glasses - GLASSES Neurological History: Reports: Hx Migraine - FEW TIMES PER MONTH TREATS WITH EXCEDRIN MIGRAINE, Hx Seizures - FOCAL SEIZURES- LAST ONE YEARS AGO- ON MEDICATION FOR Denies: Other Neuro Impairments/Disorders Psychiatric History: Denies: Hx Eating Disorder, Hx Panic Disorder - Surgical History Surgery Procedure, Year, and Place: - 2 YEARS AGO-[place] Hx Anesthesia Reactions: No Infectious Disease History: No Infectious Disease History: Denies: Hx Hepatitis, Hx Human Immunodeficiency Virus (HIV), Traveled Outside the US in Last 30 Days - Family History Known Family History: Positive: Other - Migraines Negative: Hypertension, Diabetes, Blood Disorder - Social History Alcohol Use: Rare Hx Substance Use: No Substance Use Type: Reports: Marijuana Substance Use Comment - Amount & Last Used: last used "1 month ago" Hx Tobacco Use: No Smoking Status (MU): Never Smoked Tobacco Review of Systems Negative: Fever Positive: Abdominal Pain, Nausea. Negative: Diarrhea, Other - constipation Positive: no symptoms reported All Other Systems Reviewed And Are Negative: Yes Physical Exam - Summary Physical Exam Summary: Appearance: The patient is well-nourished in no acute distress and in no acute pain. Skin: The skin is warm and dry and skin color reflects adequate perfusion. HEENT: The head is normocephalic and atraumatic. The pupils are equal and reactive. The conjunctivae are clear and without drainage. Nares are patent and without drainage. Mouth reveals moist mucous membranes and the throat is without erythema and exudate. The external ears are intact. The ear canals are patent and without drainage. The tympanic membranes are intact. Neck: the neck is supple with full range of motion and non-tender. There are no carotid bruits. There is no neck vein distension. Respiratory: Chest is non-tender. Lungs are clear to auscultation and breath sounds are symmetrical and equal. Cardiovascular: Heart is regular rate and rhythm. There is no murmur or rub auscultated. There is no peripheral edema and pulses are symmetrical and equal. Abdomen: The abdomen is soft. She is tender to the LLQ and mildly in the RLQ. There are normal bowel sounds heard in all four quadrants and there is no organomegaly palpated. Musculoskeletal: There is no back tenderness noted. Extremities are non-tender with full range of motion. There is good capillary refill. There is no peripheral edema or calf tenderness elicited. Neurological: Patient is alert and oriented to person, place and time. The patient has symmetrical motor strength in all four extremities. Cranial nerves are grossly intact. Deep tendon reflexes are symmetrical and equal in all four extremities. Psychiatric: The patient has an appropriate affect and does not exhibit any anxiety or depression. Triage Information Reviewed: Yes Vital Signs On Initial Exam: Initial Vitals Temp Pulse Resp BP Pulse Ox 98.6 F 87 18 125/67 100 09/13/17 15:03 09/13/17 15:03 09/13/17 15:03 09/13/17 15:03 09/13/17 15:03 Vital Signs Reviewed: Yes Diagnostics - Vital Signs Vital Signs Temp Pulse Resp BP Pulse Ox 09/13/17 15:03 98.6 F 87 18 125/67 100 - Laboratory Lab Results: Lab Results 09/13/17 Range/Units 16:05 WBC 8.7 (3.5-10.8) 10^3/ul RBC 4.66 (4.0-5.4) 10^6/ul Hgb 13.4 (12.0-16.0) g/dl Hct 39 (35-47) % MCV 83 (80-97) fL MCH 29 (27-31) pg MCHC 35 (31-36) g/dl RDW 14 (10.5-15) % Plt Count 309 (150-450) 10^3/ul MPV 7 L (7.4-10.4) um3 Neut % (Auto) 52.3 (38-83) % Lymph % (Auto) 38.9 (25-47) % [place] % (Auto) 6.7 (1-9) % Eos % (Auto) 1.5 (0-6) % Baso % (Auto) 0.6 (0-2) % Absolute Neuts (auto) 4.6 (1.5-7.7) 10^3/ul Absolute Lymphs (auto) 3.4 (1.0-4.8) 10^3/ul Absolute Monos (auto) 0.6 (0-0.8) 10^3/ul Absolute Eos (auto) 0.1 (0-0.6) 10^3/ul Absolute Basos (auto) 0.1 (0-0.2) 10^3/ul Absolute Nucleated RBC 0 10^3/ul Nucleated RBC % 0.1 Result Diagrams: 09/13/17 16:05 09/13/17 16:05 Lab Statement: Any lab studies that have been ordered have been reviewed, and results considered in the medical decision making process. - Additional Comments Diagnostic Additional Comments: Ultrasound Pelvis. Interpreted by radiologist. Impression: "Negative exam" Dr. Arevalo has reviewed this report. Abdominal Pain Fem Course/Dx - Course Course Of Treatment: Ms. Padilla presented with a left sided abdominal pain and tenderness. Her W/U was negative and she was D/C'd to F/U if problems continue. She has no D/C but may need a pelvic exam if problems continue. She prefers to wait. "I just came in to be on the safe side". - Diagnoses Provider Diagnoses: Abdominal pain Discharge - Discharge Plan Condition: Stable Disposition: HOME Patient Education Materials: Abdominal Pain (ED) Referrals: Zenobia Wright MD [Primary Care Provider] - 3 Days Additional Instructions: Follow up with your primary care physician in three days. Return to the emergency department for any new or worsening symptoms. The documentation as recorded by the Philippe gonzáles Thomas accurately reflects the service I personally performed and the decisions made by me, Arash Arevalo MD.
[2017-09-13 18:24] VITALS: BP 114/69
== END 2017-09-13 18:24 | disposition home or self-care (01) ==
LOC: ED 14:47
DX: R10.12 Left upper quadrant pain (principal); R10.32 Left lower quadrant pain; R10.31 Right lower quadrant pain; R11.0 Nausea; G43.909 Migraine, unspecified, not intractable, without status migrainosus; R56.9 Unspecified convulsions; Z88.2 Allergy status to sulfonamides; Z88.8 Allergy status to other drugs, medicaments and biological substances
CPT/HCPCS: 36415; 76856; 80053; 81003; 81015; 83605; 83690; 85025; 86140; 87086; 99282

== ENCOUNTER 2017-11-10 22:39 | Emergency (ER) | payer BC ==
--- NOTE | 2017-11-11 01:46 | ED ---
Influenza-Like Illness - HPI Summary HPI Summary: 21 female presents to ED with complaints of cough, congestion and coughing fits that been going on for the past 2-3 days. States during the coughing fits and afterwards she is short of breath. Is not currently short of breath or having any difficulty breathing. Denies any chest pain. Admits to feeling feverish/ chills. Tried taking kxoc-epe-bycfiip cough medication without relief. Did have the flu shot this year. Denies sore throat, nausea, vomiting or abdominal pain. No past medical history. States the cough infiltrates or so intense she almost vomits. - History of Current Complaint Chief Complaint: EDGeneral Time Seen by Provider: 11/11/17 00:08 Hx Obtained From: Patient Onset/Duration: Sudden Onset, Lasting Days, Still Present Severity: Mild Associated Signs & Symptoms: F/C - Subjective, Cough, Nasal Congestion - Allergy/Home Medications Allergies/Adverse Reactions: Allergies Allergy/AdvReac Type Severity Reaction Status Date / Time carbamazepine Allergy Rash Verified 09/13/17 14:57 oxcarbazepine Allergy Rash Verified 09/13/17 14:57 Sulfa (Sulfonamide Allergy Rash Verified 09/13/17 14:58 Antibiotics) PMH/Surg Hx/FS Hx/Imm Hx Endocrine/Hematology History: Denies: Hx Diabetes, Hx Thyroid Disease Cardiovascular History: Denies: Hx Congestive Heart Failure, Hx Hypertension, Hx Pacemaker/ICD Respiratory History: Denies: Hx Asthma, Hx Chronic Obstructive Pulmonary Disease (COPD) GI History: Denies: Hx Ulcer History: Denies: Hx Dialysis, Hx Renal Disease Sensory History: Reports: Hx Contacts or Glasses - GLASSES Denies: Hx Hearing Aid Opthamlomology History: Reports: Hx Contacts or Glasses - GLASSES Neurological History: Reports: Hx Migraine - FEW TIMES PER MONTH TREATS WITH EXCEDRIN MIGRAINE, Hx Seizures - FOCAL SEIZURES- LAST ONE YEARS AGO- ON MEDICATION FOR Denies: Other Neuro Impairments/Disorders Psychiatric History: Denies: Hx Eating Disorder, Hx Panic Disorder - Surgical History Surgery Procedure, Year, and Place: - 2 YEARS AGO-[place] [facility] Hx Anesthesia Reactions: No - Immunization History Date of Influenza Vaccine: 7230-1847 season Immunizations Up to Date: Yes Infectious Disease History: No Infectious Disease History: Denies: Hx Hepatitis, Hx Human Immunodeficiency Virus (HIV), Traveled Outside the [place] in Last 30 Days - Family History Known Family History: Positive: None, Other - Migraines Negative: Hypertension, Diabetes, Blood Disorder Family History: R & n/C - Social History Alcohol Use: Rare Hx Substance Use: No Substance Use Type: Reports: Marijuana Substance Use Comment - Amount & Last Used: last used "1 month ago" Hx Tobacco Use: No Smoking Status (MU): Never Smoked Tobacco Review of Systems Positive: Fever, Chills - subjective Eyes: Negative Positive: Nasal Discharge Cardiovascular: Negative Positive: Cough Gastrointestinal: Negative Musculoskeletal: Negative Skin: Negative Neurological: Negative All Other Systems Reviewed And Are Negative: Yes Physical Exam Triage Information Reviewed: Yes Vital Signs On Initial Exam: Initial Vitals Temp Pulse Resp BP Pulse Ox 98.1 F 89 20 120/74 97 11/10/17 22:53 11/10/17 22:53 11/10/17 22:53 11/10/17 22:53 11/10/17 22:53 Vital Signs Reviewed: Yes Appearance: Positive: Well-Appearing, No Pain Distress, Well-Nourished Skin: Positive: Warm, Skin Color Reflects Adequate Perfusion, Dry. Negative: Cold, Numb, Cyanosis @, Pale, Cold Injury Head/Face: Positive: Normal Head/Face Inspection Eyes: Positive: Conjunctiva Clear ENT: Positive: Hearing grossly normal, Pharynx normal, Nasal congestion, TMs normal, Sinus tenderness - Maxillary bilateral, Uvula midline. Negative: TM bulging, TM dull, TM red, Tonsillar swelling, Tonsillar exudate Dental: Negative: Cervical Lymphadenopathy Neck: Positive: Supple, Nontender, No Lymphadenopathy Respiratory/Lung Sounds: Positive: Clear to Auscultation, Breath Sounds Present. Negative: Decreased Breath Sounds, Rales, Rhonchi, Wheezes Cardiovascular: Positive: Normal, RRR, Pulses are Symmetrical in both Upper and Lower Extremities. Negative: Murmur, Rub Abdomen Description: Positive: Nontender, Soft Bowel Sounds: Positive: Present Musculoskeletal: Positive: Normal, Strength/ROM Intact Neurological: Positive: Normal, Sensory/Motor Intact, Alert, Oriented to Person Place, Time Diagnostics - Vital Signs Vital Signs Temp Pulse Resp BP Pulse Ox 11/10/17 22:53 98.1 F 89 20 120/74 97 - Laboratory Lab Statement: Any lab studies that have been ordered have been reviewed, and results considered in the medical decision making process. Flu Symptom Course/Dx - Course Course Of Treatment: Appears to be suffering from bronchitis/upper respiratory infection with bronchospasm. Recommend Mucinex, Flonase, saline rinses, hot showers. will give Tessalon Perles and albuterol inhaler. Normal physical exam and vital signs. In no apparent distress. Increase fluid intake and rest. Follow-up with PCP. Aware worsening signs or symptoms watch out for. No other concerns at this time. - Diagnoses Differential Diagnosis/HQI/PQRI: Positive: Bronchitis, Upper Respiratory Infection Provider Diagnoses: Upper respiratory infection, Bronchospasm with bronchitis, acute Discharge - Sign-Out/Discharge Documenting (check all that apply): Discharge - Discharge Plan Condition: Good Disposition: HOME Prescriptions: Albuterol HFA INHALER* [Ventolin HFA Inhaler*] 1 - 2 puff INH Q4H PRN #1 mdi PRN Reason: Cough Benzonatate CAP* [Tessalon 100 MG CAP*] 100 mg PO TID PRN #21 cap PRN Reason: Cough Fluticasone NASAL SPRAY 50MCG* [Flonase NASAL SPRAY 50MCG*] 2 spray BOTH NARES DAILY #1 btl Patient Education Materials: Upper Respiratory Infection (ED), Bronchospasm (ED ) Referrals: Zenobia Wright MD [Primary Care Provider] - Additional Instructions: Take prescribed medication as directed. Use inhaler as needed for cough and shortness of breath. Increase fluid intake. Flonase for nasal congestion. Recommend nasal saline rinses, saltwater gargles and hot showers. Take Mucinex [id number]. Follow-up with PCP. Any new or worsening signs or symptoms please seek medical attention. - Billing Disposition and Condition Condition: GOOD Disposition: HOME
[2017-11-11 02:42] VITALS: BP 128/75
== END 2017-11-11 02:15 | disposition home or self-care (01) ==
LOC: ED 22:39
DX: J06.9 Acute upper respiratory infection, unspecified (principal); J20.9 Acute bronchitis, unspecified; J98.01 Acute bronchospasm
CPT/HCPCS: 99282

== ENCOUNTER 2017-11-24 20:13 | Emergency (ER) | payer SELFPAY ==
--- NOTE | 2017-11-25 00:48 | ED ---
Upper Extremity Pain - HPI Summary HPI Summary: Complains of right thumb pain and mild swelling starting this morning. Denies trauma, history of same, loss of sensation or function. Pain at base of right thumb, no pain anywhere else in hand. - History of Current Complaint Chief Complaint: EDExtremityUpper Stated Complaint: RT THUMB PAIN Time Seen by Provider: 11/24/17 23:49 Hx Obtained From: Patient Hx Last Menstrual Period: uses implanon Mechanism Of Injury: Unknown Onset/Duration: Started Hours Ago Timing: Intermittent Severity Initially: Moderate Severity Currently: Moderate Pain Location: Finger Character: Aching Aggravating Factor(s): Movement, Flexion, Extension Alleviating Factor(s): Nothing Associated Signs & Symptoms: Positive: Swelling. Negative: Redness, Bruising, Fever, Numbness/Tingling - Allergies/Home Medications Allergies/Adverse Reactions: Allergies Allergy/AdvReac Type Severity Reaction Status Date / Time carbamazepine Allergy Rash Verified 09/13/17 14:57 oxcarbazepine Allergy Rash Verified 09/13/17 14:57 Sulfa (Sulfonamide Allergy Rash Verified 09/13/17 14:58 Antibiotics) PMH/Surg Hx/FS Hx/Imm Hx Endocrine/Hematology History: Denies: Hx Diabetes, Hx Thyroid Disease Cardiovascular History: Denies: Hx Congestive Heart Failure, Hx Hypertension, Hx Pacemaker/ICD Respiratory History: Denies: Hx Asthma, Hx Chronic Obstructive Pulmonary Disease (COPD) GI History: Denies: Hx Ulcer History: Denies: Hx Dialysis, Hx Renal Disease Sensory History: Reports: Hx Contacts or Glasses - GLASSES Denies: Hx Hearing Aid Opthamlomology History: Reports: Hx Contacts or Glasses - GLASSES Neurological History: Reports: Hx Migraine - FEW TIMES PER MONTH TREATS WITH EXCEDRIN MIGRAINE, Hx Seizures - FOCAL SEIZURES- LAST ONE YEARS AGO- ON MEDICATION FOR Denies: Other Neuro Impairments/Disorders Psychiatric History: Denies: Hx Eating Disorder, Hx Panic Disorder - Surgical History Surgery Procedure, Year, and Place: - 2 YEARS AGO-[place] Hx Anesthesia Reactions: No - Immunization History Date of Influenza Vaccine: 4934-1094 season Immunizations Up to Date: Yes Infectious Disease History: No Infectious Disease History: Denies: Hx Hepatitis, Hx Human Immunodeficiency Virus (HIV), Traveled Outside the [place] in Last 30 Days - Family History Known Family History: Positive: None, Other - Migraines Negative: Hypertension, Diabetes, Blood Disorder Family History: R & n/C - Social History Alcohol Use: Rare Hx Substance Use: No Substance Use Type: Reports: Marijuana Substance Use Comment - Amount & Last Used: last used "1 month ago" Hx Tobacco Use: No Smoking Status (MU): Never Smoked Tobacco Review of Systems Constitutional: Negative Eyes: Negative ENT: Negative Cardiovascular: Negative Respiratory: Negative Gastrointestinal: Negative Genitourinary: Negative Musculoskeletal: Negative Skin: Negative Neurological: Negative Psychological: Normal All Other Systems Reviewed And Are Negative: Yes Physical Exam - Summary Physical Exam Summary: Mild swelling of right hand. No ecchymosis, deformity, or extra warmth, erythema noted to hand or right thumb . Pain with flexion and extension of right thumb. Full range of motion right wrist without pain. Full range of motion of the 4 fingers without pain. Base of right thumb mildly tender to palpation. PMS intact Triage Information Reviewed: Yes Vital Signs On Initial Exam: Initial Vitals Temp Pulse Resp BP Pulse Ox 99.2 F 89 16 126/84 100 11/24/17 20:53 11/24/17 20:53 11/24/17 20:53 11/24/17 20:53 11/24/17 20:53 Vital Signs Reviewed: Yes Appearance: Positive: Well-Appearing Skin: Positive: Warm Head/Face: Positive: Normal Head/Face Inspection Eyes: Positive: Normal Neck: Positive: Supple Respiratory/Lung Sounds: Positive: Clear to Auscultation Cardiovascular: Positive: Normal Abdomen Description: Positive: Nontender Musculoskeletal: Positive: Normal Neurological: Positive: Normal Psychiatric: Positive: Normal AVPU Assessment: Alert - Angelique Coma Scale Best Eye Response: 4 - Spontaneous Best Motor Response: 6 - Obeys Commands Best Verbal Response: 5 - Oriented Coma Scale Total: 15 Diagnostics - Vital Signs Vital Signs Temp Pulse Resp BP Pulse Ox 11/24/17 22:32 99.3 F 102 20 131/66 100 11/24/17 20:53 99.2 F 89 16 126/84 100 - Laboratory Lab Statement: Any lab studies that have been ordered have been reviewed, and results considered in the medical decision making process. - Radiology hand Xray Interpretation: No Acute Changes Radiology Interpretation Completed By: ED Physician Course/Dx - Course Course Of Treatment: No erythema, extra warmth, ecchymosis, deformity noted to right hand. Mild swelling. Ice, ibuprofen. Symptoms persist follow-up with orthopedics - Diagnoses Provider Diagnoses: Pain of right thumb Discharge - Sign-Out/Discharge Documenting (check all that apply): Discharge/Admit/Transfer - Discharge Plan Condition: Stable Disposition: HOME Patient Education Materials: Finger Sprain (ED) Referrals: Zenobia Wright MD [Primary Care Provider] - Shannan oNva MD [Medical Doctor] - Additional Instructions: Take ibuprofen for pain. Ice hand 10-15 minutes every hour. If pain persists follow-up with orthopedics Dr. Nova. Return to the ED for any new or worsening symptoms - Billing Disposition and Condition Condition: STABLE Disposition: HOME
[2017-11-25] MEDS ORDERED: Ibuprofen TAB* 600 MG PO ONE (00:49)
[2017-11-25 01:07] VITALS: BP 120/73
--- NOTE | 2017-11-25 07:20 | RAD ---
INDICATION: Left wrist pain. TECHNIQUE: 3 views of the left wrist were obtained. FINDINGS: The bones are in normal alignment. No fracture is seen. Joint spaces appear maintained. IMPRESSION: NO EVIDENCE FOR FRACTURE.
== END 2017-11-25 01:05 | disposition home or self-care (01) ==
LOC: ED 20:13
DX: M79.644 Pain in right finger(s) (principal); Z88.2 Allergy status to sulfonamides; Z88.8 Allergy status to other drugs, medicaments and biological substances
CPT/HCPCS: 99281; A9270-GY

== ENCOUNTER 2018-06-30 18:31 | Emergency (ER) | payer BC ==
[2018-06-30] MEDS ORDERED: diPHENhydraMINE IV* 50 MG/ML 1 ml VIAL (BENADRYL) SLOW PUSH ONE (19:03)
[2018-06-30] MEDS ORDERED: PROCHLORPERAZINE INJ 5 MG/ML 2 ML VIAL IV ONE (19:03)
[2018-06-30] MEDS ORDERED: Ketorolac INJ* 30 MG/ML 1 ML VIAL IV PUSH ONE (19:03)
[2018-06-30] MEDS ORDERED: NS 0.9% 1000 ML* 2,000 ML IV ONE (19:03)
--- NOTE | 2018-06-30 19:39 | ED ---
Headache - HPI Summary HPI Summary: A 22 y/o female presents to the ED c/o headache/migraine reaching 6/10 in severity. As per triage, "Headache, unrelieved with excedrin, tylenol or ibuprofen. Hx of migraines but they usually are not so long lasting. Pt reports nausea with vomiting". According to the patient, she has a history of migraines , however, they usually last a couple hours. Her migraine today started yesterday when she woke up. She took several medications including Excedrin, Advil, and Ibuprofen, but nothing has alleviated her symptoms. She denies any vomiting, but does have nausea. Additionally denies any blurred vision, chest pain, abdominal pain or SOB. She noted that currently, the pain his behind her left eye, but yesterday it was diffusely on her forehead. She further noted that it is nothing serious but when she coughs (present for past couple days) her chest and ribs hurt. Usually gets migraines 1-2 times per month. Patient has several allergies to medications. - History Of Current Complaint Chief Complaint: EDHeadache Stated Complaint: HEADACHE/COUGH Time Seen by Provider: 06/30/18 18:45 Hx Obtained From: Patient Hx Last Menstrual Period: uses implanon Onset/Duration: Sudden Onset, Started days ago, Still Present Timing: Constant Character: Migraine Location of Headache: Frontal - yesterday, not currently, Other: - behind left eye Aggravating Factor: Nothing Allevating Factors: Nothing Associated Signs And Symptoms: Nausea - Allergies/Home Medications Allergies/Adverse Reactions: Allergies Allergy/AdvReac Type Severity Reaction Status Date / Time carbamazepine Allergy Rash Verified 09/13/17 14:57 oxcarbazepine Allergy Rash Verified 09/13/17 14:57 Sulfa (Sulfonamide Allergy Rash Verified 09/13/17 14:58 Antibiotics) PMH/Surg Hx/FS Hx/Imm Hx Endocrine/Hematology History: Denies: Hx Diabetes, Hx Thyroid Disease Cardiovascular History: Denies: Hx Congestive Heart Failure, Hx Hypertension, Hx Pacemaker/ICD Respiratory History: Denies: Hx Asthma, Hx Chronic Obstructive Pulmonary Disease (COPD) GI History: Denies: Hx Ulcer History: Denies: Hx Dialysis, Hx Renal Disease Sensory History: Reports: Hx Contacts or Glasses - GLASSES Denies: Hx Hearing Aid Opthamlomology History: Reports: Hx Contacts or Glasses - GLASSES Neurological History: Reports: Hx Migraine - FEW TIMES PER MONTH TREATS WITH EXCEDRIN MIGRAINE, Hx Seizures - FOCAL SEIZURES- LAST ONE YEARS AGO- ON MEDICATION FOR Denies: Other Neuro Impairments/Disorders Psychiatric History: Denies: Hx Eating Disorder, Hx Panic Disorder - Surgical History Surgery Procedure, Year, and Place: - 2 YEARS AGO-[place] Hx Anesthesia Reactions: No - Immunization History Date of Influenza Vaccine: 7445-5451 season Infectious Disease History: No Infectious Disease History: Denies: Hx Hepatitis, Hx Human Immunodeficiency Virus (HIV), Traveled Outside the [place] in Last 30 Days - Family History Known Family History: Positive: Other - Migraines Negative: Hypertension, Diabetes, Blood Disorder Family History: R & n/C - Social History Alcohol Use: Rare Hx Substance Use: No Substance Use Type: Reports: Marijuana Substance Use Comment - Amount & Last Used: last used "1 month ago" Hx Tobacco Use: No Smoking Status (MU): Never Smoked Tobacco Review of Systems Negative: Fever Negative: Blurred Vision Negative: Chest Pain Positive: Cough. Negative: Shortness Of Breath Positive: Nausea. Negative: Abdominal Pain, Vomiting Positive: Headache All Other Systems Reviewed And Are Negative: Yes Physical Exam - Summary Physical Exam Summary: Appearance: Well-appearing, Well-nourished, lying in bed comfortably Skin: Warm, dry, no obvious rash Eyes: sclera anicteric, no conjunctival pallor ENT: mucous membranes moist, pharynx appears normal Neck: Supple, nontender Respiratory: Clear to auscultation, no signs of respiratory distress Cardiovascular: Normal S1, S2. No murmurs. Normal distal pulses in tibial and radial bilaterally. Abdomen: Soft, nontender, normal active bowel sounds present Musculoskeletal: Normal, Strength/ROM Intact Neurological: A&Ox3, awake and alert, mentation is normal, speech is fluent and appropriate Psychiatric: affect is normal, does not appear anxious or depressed Triage Information Reviewed: Yes Vital Signs On Initial Exam: Initial Vitals Temp Pulse Resp BP Pulse Ox 97 F 89 18 130/76 100 06/30/18 18:34 06/30/18 18:34 06/30/18 18:34 06/30/18 18:34 06/30/18 18:34 Vital Signs Reviewed: Yes Diagnostics - Vital Signs Vital Signs Temp Pulse Resp BP Pulse Ox 06/30/18 18:34 97 F 89 18 130/76 100 - Laboratory Lab Statement: Any lab studies that have been ordered have been reviewed, and results considered in the medical decision making process. Re-Evaluation - Re-Evaluation First Eval Re-Evaluation Time: 21:20 Change: Improved Comment: Patient is feeling much better and would like to go home. Headache Course/Dx - Course Course Of Treatment: A 22 y/o female presents to the ED c/o headache/migraine reaching 6/10 in severity. According to the patient, she has a history of migraines, however, they usually last a couple hours. Her migraine today started yesterday when she woke up. She took several medications including Excedrin, Advil, and Ibuprofen, but nothing has alleviated her symptoms. She denies any vomiting, but does have nausea. Additionally denies any blurred vision, chest pain, abdominal pain or SOB. She noted that currently, the pain his behind her left eye, but yesterday it was diffusely on her forehead. She further noted that it is nothing serious but when she coughs (present for past couple days) her chest and ribs hurt. Usually gets migraines 1-2 times per month. Patient has several allergies to medications. Physical examination was unremarkable. No laboratory scans were done. No hematology was done. In the ED course, the patient received Benadryl, Toradol, Compazine, and IV fluids. During re-evaluation, the patient revealed she was feeling much better and would like to be discharged. Patient will be discharged with a diagnosis of migraine headache. Patient is to follow up with primary care provider in 2-3 days. Patient is to return to ED for any new or worsening symptoms. Patient is agreeable with this plan. - Diagnoses Provider Diagnoses: Migraine headache Discharge - Sign-Out/Discharge Documenting (check all that apply): Patient Departure - DISCHARGE - Discharge Plan Condition: Good Disposition: HOME Patient Education Materials: Migraine Headache (ED) Referrals: Zenobia Wright MD [Primary Care Provider] - 3 Days Additional Instructions: FOLLOW UP WITH PRIMARY CARE PROVIDER IN 2-3 DAYS. RETURN TO ED FOR ANY NEW OR WORSENING SYMPTOMS. - Attestation Statements Document Initiated by Scribe: Yes Documenting Scribe: Nikita Shah Provider For Whom Anuradhaibe is Documenting (Include Credential): Arsah Batres MD Scribe Attestation: Nikita Noriega, scribed for Arash Batres MD on 06/30/18 at 2144. Status of Scribe Document: Ready
[2018-06-30 21:41] VITALS: BP 133/69
== END 2018-06-30 21:41 | disposition home or self-care (01) ==
LOC: ED 18:31
DX: G43.909 Migraine, unspecified, not intractable, without status migrainosus (principal); R05 Cough; R11.0 Nausea
CPT/HCPCS: 96374; 96375; 99282; J0780; J1885

== ENCOUNTER 2018-07-15 10:57 | Emergency (ER) | payer BC ==
[2018-07-15 11:12] VITALS: BP 128/73
[2018-07-15] MEDS ORDERED: Ibuprofen TAB* 600 MG PO ONE (11:40)
--- NOTE | 2018-07-15 11:47 | UC ---
Knee Pain HPI - HPI Summary HPI Summary: 22-year-old woman comes to clinic today with a chief complaint of right knee pain. She woke up with the pain being severe. Pain is been going on for couple of days but has been tolerable. She feels like her knee joint is swollen. It hurts with any flexion or attempted weightbearing. had surgery in this knee in the past. Has not tried any medication to decrease the pain. The knee is not red. She feels fine otherwise. Patient feels like the knee wants to give out with ambulation. - History of Current Complaint Chief Complaint: UCLowerExtremity Stated Complaint: KNEE PAIN Time Seen by Provider: 07/15/18 11:14 Hx Last Menstrual Period: pt on nexplanon and states not getting a menses Pain Intensity: 7 - Allergies/Home Medications Allergies/Adverse Reactions: Allergies Allergy/AdvReac Type Severity Reaction Status Date / Time carbamazepine Allergy Rash Verified 07/15/18 11:12 oxcarbazepine Allergy Rash Verified 07/15/18 11:12 Sulfa (Sulfonamide Allergy Rash Verified 07/15/18 11:12 Antibiotics) Home Medications: Home Medications FLUoxetine CAP* [PROzac CAP*] 10 mg PO DAILY 07/15/18 [History Confirmed ] PMH/Surg Hx/FS Hx/Imm Hx Previously Healthy: Yes - Surgical History Surgical History: Yes Surgery Procedure, Year, and Place: R knee - Family History Known Family History: Positive: None, Other - Migraines Negative: Hypertension, Diabetes, Blood Disorder Family History: R & n/C - Social History Alcohol Use: Rare Substance Use Type: Marijuana Substance Use Comment - Amount & Last Used: occ usage Smoking Status (MU): Never Smoked Tobacco Review of Systems All Other Systems Reviewed And Are Negative: Yes Constitutional: Positive: Negative Skin: Positive: Negative Eyes: Positive: Negative ENT: Positive: Negative Respiratory: Positive: Negative Cardiovascular: Positive: Negative Gastrointestinal: Positive: Negative Motor: Positive: Negative Neurovascular: Positive: Negative Musculoskeletal: Positive: Other: - see hpi Neurological: Positive: Negative Psychological: Positive: Negative Is Patient Immunocompromised?: No Physical Exam Triage Information Reviewed: Yes Appearance: Well-Appearing, Well-Nourished, Pain Distress - mild with rom of rt knee Vital Signs: Initial Vital Signs Temp 98.3 F 07/15/18 11:04 Pulse 96 07/15/18 11:04 Resp 16 07/15/18 11:04 BP 128/73 07/15/18 11:04 Pulse Ox 100 07/15/18 11:04 Vital Signs Reviewed: Yes Eye Exam: Normal Eyes: Positive: Conjunctiva Clear Neck exam: Normal Neck: Positive: Supple Respiratory: Positive: No respiratory distress Musculoskeletal: Positive: Strength Intact, Other: - Right knee has an effusion. It is not hot to touch there is no erythema. Pain with palpation and motion of the kneecap. Also some tenderness to palpation on the collateral ligaments and the popliteal. Positive Sangeeta's medial and lateral. Patient states her knee feels unstable on exam. Neurological: Positive: Alert, Muscle Tone Normal Psychological Exam: Normal Psychological: Positive: Age Appropriate Behavior Skin Exam: Normal Knee Pain Course/Dx - Course Course Of Treatment: Order Information: KNEE RIGHT 4+ VWS. Accession Number: [id number]. CPT: 32293. INDICATION: Right knee injury. TECHNIQUE: 4 views of the right knee were obtained. FINDINGS: The bones are in normal alignment. No joint effusion or fracture is seen. Joint spaces appear maintained. IMPRESSION: NO EVIDENCE FOR FRACTURE. . <Electronically signed by Rodrigo Casas MD in OV> [id number]. I discussed the x-rays with the patient. Concern for potential internal derangement of the knee. The plan is anti-inflammatories eyes immobilization with a knee immobilizer. Minimize weightbearing. Patient given crutches. Follow-up with orthopedics. - Differential Dx/Diagnosis Provider Diagnosis: Knee pain, right, Knee effusion, right Discharge - Sign-Out/Discharge Documenting (check all that apply): Patient Departure All imaging exams completed and their final reports reviewed: Yes - Discharge Plan Condition: Stable Disposition: HOME Prescriptions: HYDROcodone/ACETAMIN 5-325 MG* [Jacumba 5-325 TAB*] 1 tab PO Q4H PRN #20 tab MDD 6 PRN Reason: Pain Patient Education Materials: Crutch Instructions (ED), Swollen Knee Joint (ED) , Knee Pain (ED) Forms: *Work Release Referrals: Zenobia Wright MD [Primary Care Provider] - Shannan Nova MD [Medical Doctor] - Additional Instructions: FOLLOW UP WITH ORTHOPEDICS. GET RECHECKED FOR ANY WORSENING OF YOUR CONDITION OR QUESTIONS OR CONCERNS. - Billing Disposition and Condition Condition: STABLE Disposition: Home
== END 2018-07-15 12:28 | disposition home or self-care (01) ==
LOC: UCEAST 10:57
DX: M25.561 Pain in right knee (principal); M25.461 Effusion, right knee; Z88.8 Allergy status to other drugs, medicaments and biological substances; Z88.2 Allergy status to sulfonamides
CPT/HCPCS: 99213; A9270-GY; G0463

== ENCOUNTER 2018-09-02 22:46 | Emergency (ER) | payer BC, OTHER ==
--- NOTE | 2018-09-03 02:39 | ED ---
Upper Extremity Pain - HPI Summary HPI Summary: Pt is a 22 y/o F presenting to the ED with upper extremity pain. 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 - History of Current Complaint Chief Complaint: EDExtremityUpper Stated Complaint: RT ARM INJURY Time Seen by Provider: 09/03/18 02:09 Hx Obtained From: Patient Hx Last Menstrual Period: pt on nexplanon and states not getting a menses Mechanism Of Injury: Other - working with resident Onset/Duration: Started Hours Ago, Still Present Timing: Constant, Lasting Hours Severity Initially: Moderate Severity Currently: Moderate Pain Location: Wrist - right Character: Aching Aggravating Factor(s): Movement, Flexion, Extension Alleviating Factor(s): Nothing Associated Signs & Symptoms: Negative: Swelling, Fever - Allergies/Home Medications Allergies/Adverse Reactions: Allergies Allergy/AdvReac Type Severity Reaction Status Date / Time carbamazepine Allergy Rash Verified 07/15/18 11:12 oxcarbazepine Allergy Rash Verified 07/15/18 11:12 Sulfa (Sulfonamide Allergy Rash Verified 07/15/18 11:12 Antibiotics) PMH/Surg Hx/FS Hx/Imm Hx Previously Healthy: Yes Endocrine/Hematology History: Denies: Hx Diabetes, Hx Thyroid Disease Cardiovascular History: Denies: Hx Congestive Heart Failure, Hx Hypertension, Hx Pacemaker/ICD Respiratory History: Denies: Hx Asthma, Hx Chronic Obstructive Pulmonary Disease (COPD) GI History: Denies: Hx Ulcer History: Denies: Hx Dialysis, Hx Renal Disease Sensory History: Reports: Hx Contacts or Glasses - GLASSES Denies: Hx Hearing Aid Opthamlomology History: Reports: Hx Contacts or Glasses - GLASSES Neurological History: Reports: Hx Migraine - FEW TIMES PER MONTH TREATS WITH EXCEDRIN MIGRAINE, Hx Seizures - FOCAL SEIZURES- LAST ONE YEARS AGO- ON MEDICATION FOR Denies: Other Neuro Impairments/Disorders Psychiatric History: Denies: Hx Eating Disorder, Hx Panic Disorder - Surgical History Surgery Procedure, Year, and Place: R knee Hx Anesthesia Reactions: No - Immunization History Date of Influenza Vaccine: 3060-1088 season Infectious Disease History: No Infectious Disease History: Denies: Hx Hepatitis, Hx Human Immunodeficiency Virus (HIV), Traveled Outside the [place] in Last 30 Days - Family History Known Family History: Negative: Hypertension, Diabetes, Blood Disorder - Social History Alcohol Use: Rare Hx Substance Use: No Substance Use Type: Reports: None Substance Use Comment - Amount & Last Used: denies Hx Tobacco Use: No Smoking Status (MU): Never Smoked Tobacco Review of Systems Negative: Fever Positive: Arthralgia - R wrist All Other Systems Reviewed And Are Negative: Yes Physical Exam - Summary Physical Exam Summary: VITAL SIGNS: Reviewed. GENERAL: Patient is a well-developed and nourished female who is lying comfortable in the stretcher. Patient is not in any acute respiratory distress. HEAD AND FACE: No signs of trauma. No ecchymosis, hematomas or skull depressions. No sinus tenderness. EYES: PERRLA, EOMI x 2, No injected conjunctiva, no nystagmus. EARS: Hearing grossly intact. Ear canals and tympanic membranes are within normal limits. MOUTH: Oropharynx within normal limits. NECK: Supple, trachea is midline, no adenopathy, no JVD, no carotid bruit, no c- spine tenderness, neck with full ROM. CHEST: Symmetric, no tenderness at palpation LUNGS: Clear to auscultation bilaterally. No wheezing or crackles. CVS: Regular rate and rhythm, S1 and S2 present, no murmurs or gallops appreciated. ABDOMEN: Soft, non-tender. No signs of distention. No rebound no guarding, and no masses palpated. Bowel sounds are normal. EXTREMITIES: Tenderness over R wrist without swelling NEURO: Alert and oriented x 3. No acute neurological deficits. Speech is normal and follows commands. SKIN: Dry and warm Triage Information Reviewed: Yes Vital Signs On Initial Exam: Initial Vitals Temp Pulse Resp BP Pulse Ox 97.6 F 94 16 124/79 100 09/02/18 22:48 09/02/18 22:48 09/02/18 22:48 09/02/18 22:48 09/02/18 22:48 Vital Signs Reviewed: Yes Diagnostics - Vital Signs Vital Signs Temp Pulse Resp BP Pulse Ox 09/02/18 22:48 97.6 F 94 16 124/79 100 - Laboratory Lab Statement: Any lab studies that have been ordered have been reviewed, and results considered in the medical decision making process. - Radiology Wrist x-ray Radiology Interpretation Completed By: ED Physician Summary of Radiographic Findings: No acute process. Pending official radiology report. Course/Dx - Course Course Of Treatment: Pt is a 22 y/o F presenting to the ED with upper extremity pain. 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 R wrist x -ray shows no wrist fracture. Pt will be diagnosed with a sprained wrist and sent home with instructions to f/u with her PCP in the morning. - Diagnoses Provider Diagnoses: Right wrist sprain Discharge - Sign-Out/Discharge Documenting (check all that apply): Patient Departure Patient Received Moderate/Deep Sedation with Procedure: No - Discharge Plan Condition: Stable Disposition: HOME Referrals: Zenobia Wright MD [Primary Care Provider] - Additional Instructions: PLEASE FOLLOW UP WITH YOUR PRIMARY CARE PROVIDER IN THE MORNING. RETURN TO THE EMERGENCY DEPARTMENT WITH ANY NEW OR WORSENING SYMPTOMS. - Attestation Statements Document Initiated by Scribe: Yes Documenting Scribe: Anaya Bowen Provider For Whom Kelley is Documenting (Include Credential): Gerda Farrar MD. Scribe Attestation: Anaya Noriega, scribed for Gerda Farrar MD. on 09/03/18 at 0311. Status of Scribe Document: Ready
[2018-09-03] MEDS ORDERED: Ibuprofen TAB* 400 MG PO ONE (02:41)
[2018-09-03 03:24] VITALS: BP 113/75
== END 2018-09-03 03:10 | disposition home or self-care (01) ==
LOC: ED 22:46
DX: S63.501A Unspecified sprain of right wrist, initial encounter (principal); X50.0XXA Overexertion from strenuous movement or load, initial encounter; X50.9XXA Other and unspecified overexertion or strenuous movements or postures, initial encounter; Y92.9 Unspecified place or not applicable; Z88.2 Allergy status to sulfonamides
CPT/HCPCS: 99282; A9270-GY

== ENCOUNTER 2018-12-01 02:21 | Emergency (ER) | payer BC ==
[2018-12-01] MEDS ORDERED: Metoclopramide IV* 5 MG/ML 2 ML VIAL IV SLOW PU ONE (02:52)
[2018-12-01] MEDS ORDERED: Ketorolac INJ* 30 MG/ML 1 ML VIAL IV PUSH ONE (02:52)
[2018-12-01] MEDS ORDERED: Morphine 4 MG/ML VIAL (1 ml) 4 MG/ML VIAL IV ONE (02:53)
--- NOTE | 2018-12-01 03:19 | ED ---
Abdominal Pain/Female - HPI Summary HPI Summary: A 22 y/o female presents to [facility] with a chief complaint of left sided abdominal pain that has been worsening over the past few hours. Her pain is in her left flank. She reports nausea but denies vomiting, urinary symptoms or fever. She rates her pain as a 10/10 in severity. She denies a Hx of kidney stones. She takes Topamax for seizures and takes Prozac. - History of Current Complaint Chief Complaint: EDFlankPain Stated Complaint: "L FLANK PAIN" PER PT Time Seen by Provider: 12/01/18 02:38 Hx Obtained From: Patient Hx Last Menstrual Period: pt on nexplanon and states not getting a menses Onset/Duration: Sudden Onset, Lasting Hours, Still Present Timing: Constant Severity Initially: Moderate Severity Currently: Severe Pain Intensity: 10 Pain Scale Used: 0-10 Numeric Location: Diffuse - left sided, Flank - left Radiates: No Character: Other: - unable to describe Aggravating Factor(s): Nothing Alleviating Factor(s): Nothing Associated Signs and Symptoms: Positive: Nausea. Negative: Fever, Urinary Symptoms, Vomiting Allergies/Adverse Reactions: Allergies Allergy/AdvReac Type Severity Reaction Status Date / Time carbamazepine Allergy Rash Verified 07/15/18 11:12 oxcarbazepine Allergy Rash Verified 07/15/18 11:12 Sulfa (Sulfonamide Allergy Rash Verified 07/15/18 11:12 Antibiotics) PMH/Surg Hx/FS Hx/Imm Hx Endocrine/Hematology History: Denies: Hx Diabetes, Hx Thyroid Disease Cardiovascular History: Denies: Hx Congestive Heart Failure, Hx Hypertension, Hx Pacemaker/ICD Respiratory History: Denies: Hx Asthma, Hx Chronic Obstructive Pulmonary Disease (COPD) GI History: Denies: Hx Ulcer History: Denies: Hx Dialysis, Hx Renal Disease Sensory History: Reports: Hx Contacts or Glasses - GLASSES Denies: Hx Hearing Aid Opthamlomology History: Reports: Hx Contacts or Glasses - GLASSES Neurological History: Reports: Hx Migraine - FEW TIMES PER MONTH TREATS WITH EXCEDRIN MIGRAINE, Hx Seizures - FOCAL SEIZURES- LAST ONE YEARS AGO- ON MEDICATION FOR Denies: Other Neuro Impairments/Disorders Psychiatric History: Denies: Hx Eating Disorder, Hx Panic Disorder - Surgical History Surgery Procedure, Year, and Place: R knee Hx Anesthesia Reactions: No - Immunization History Date of Influenza Vaccine: 7086-0704 season Infectious Disease History: No Infectious Disease History: Denies: Hx Hepatitis, Hx Human Immunodeficiency Virus (HIV), Traveled Outside the [place] in Last 30 Days - Family History Known Family History: Negative: Hypertension, Diabetes, Blood Disorder - Social History Alcohol Use: Rare Hx Substance Use: No Substance Use Type: Reports: None Substance Use Comment - Amount & Last Used: denies Hx Tobacco Use: No Smoking Status (MU): Current Some Day Smoker Review of Systems Negative: Fever Positive: Abdominal Pain, Nausea. Negative: Vomiting Positive: flank pain - left. Negative: dysuria, hematuria All Other Systems Reviewed And Are Negative: Yes Physical Exam - Summary Physical Exam Summary: VITAL SIGNS: Reviewed. GENERAL: Patient is a well-developed and nourished FEMALE who is lying comfortable in the stretcher. Patient is not in any acute respiratory distress. HEAD AND FACE: No signs of trauma. No ecchymosis, hematomas or skull depressions. No sinus tenderness. EYES: PERRLA, EOMI x 2, No injected conjunctiva, no nystagmus. EARS: Hearing grossly intact. Ear canals and tympanic membranes are within normal limits. MOUTH: Oropharynx within normal limits. NECK: Supple, trachea is midline, no adenopathy, no JVD, no carotid bruit, no c- spine tenderness, neck with full ROM CHEST: Symmetric, no tenderness at palpation LUNGS: Clear to auscultation bilaterally. No wheezing or crackles. CVS: Regular rate and rhythm, S1 and S2 present, no murmurs or gallops appreciated. ABDOMEN: Left CVA tenderness. LLQ tenderness. No signs of distention. No rebound no guarding, and no masses palpated. Bowel sounds are normal. EXTREMITIES: FROM in all major joints, no edema, no cyanosis or clubbing. NEURO: Alert and oriented x 3. No acute neurological deficits. Speech is normal and follows commands. SKIN: Dry and warm Triage Information Reviewed: Yes Vital Signs On Initial Exam: Initial Vitals Temp Pulse Resp BP Pulse Ox 98.4 F 92 20 136/82 100 12/01/18 02:27 12/01/18 02:27 12/01/18 02:27 12/01/18 02:27 12/01/18 02:27 Vital Signs Reviewed: Yes Diagnostics - Vital Signs Vital Signs Temp Pulse Resp BP Pulse Ox 12/01/18 02:41 107 125/77 99 12/01/18 02:27 98.4 F 92 20 136/82 100 - Laboratory Result Diagrams: 12/01/18 03:03 12/01/18 03:03 Lab Statement: Any lab studies that have been ordered have been reviewed, and results considered in the medical decision making process. - CT abdomen/pelvis CT Interpretation Completed By: Radiologist Summary of CT Findings: No obstructing nephrolithiasis or hydronephrosis. ED physician has reviewed this imaging report. Abdominal Pain Fem Course/Dx - Course Course Of Treatment: A 22 y/o female presents to [facility] with a chief complaint of left sided abdominal pain that has been worsening over the past few hours. Her pain is in her left flank. She reports nausea but denies vomiting, urinary symptoms or fever. The physical exam revealed left CVA tenderness and LLQ tenderness. In the ED course the patient was given Sodium Chloride IV, Morphine IV, Reglan IV and Toradol IV. Bloodwork, chemistries and urines obtained and are WNL. Abdomen/pelvis CT impression: No obstructing nephrolithiasis or hydronephrosis. The patient will be discharged with a prescription for Motrin and follow up with her PCP. The patient is agreeable with this plan. - Diagnoses Provider Diagnoses: Flank pain Discharge - Sign-Out/Discharge Documenting (check all that apply): Patient Departure - DC Patient Received Moderate/Deep Sedation with Procedure: No - Discharge Plan Condition: Stable Disposition: HOME Prescriptions: Ibuprofen TAB* [Motrin TAB* 800 MG] 800 mg PO Q6H PRN #30 tab PRN Reason: Pain Patient Education Materials: Flank Pain (ED) Forms: *Work Release Referrals: Zenobia Wright MD [Primary Care Provider] - (2-3 days) Additional Instructions: PLEASE RETURN TO THE ED IMMEDIATELY FOR WORSENING OR CONCERNING SYMPTOMS. - Billing Disposition and Condition Condition: STABLE Disposition: Home - Attestation Statements Document Initiated by Scribe: Yes Documenting Scribe: David Chirinos Provider For Whom Kelley is Documenting (Include Credential): Gerda Farrar MD Scribe Attestation: David Noriega scribed for Gerda Farrar MD on 12/01/18 at 0642. Scribe Documentation Reviewed: Yes Provider Attestation: The documentation as recorded by the David gonzáles accurately reflects the service I personally performed and the decisions made by me, Gerda Farrar MD Status of Scribe Document: Viewed
[2018-12-01] MEDS: NS 0.9% 1000 ML** 2,000 ML IV ONE ×2 (03:20→03:21)
[2018-12-01 03:24] LABS: ABS Basophils 0.1 10^3/ul (0-0.2); ABS Eosinophils 0.2 10^3/ul (0-0.6); ABS Lymphocytes 3.7 10^3/ul (1.0-4.8); ABS Monocytes 1.1 10^3/ul (0-0.8); ABS Neutrophils 7.6 10^3/ul (1.5-7.7); Eosinophil % 1.8 %; Hematocrit 39 % (35-47); Hemoglobin 13.1 g/dL (12.0-16.0); Lymphocyte % 29.3 %; Mean Corpuscular HGB Conc 34 g/dL (31-36); Mean Corpuscular Hemoglobin 28 pg (27-31); Mean Corpuscular Volume 82 fL (80-97); Mean Platelet Volume 7.2 fL (7.4-10.4); Nucleated Red Blood Cells % 0.1; Platelet Count 363 10^3/uL (150-450); Red Blood Count 4.74 10^6 /uL (3.70-4.87); Red Cell Distribution Width 13 % (10.5-15); White Blood Count 12.8 10^3/uL (3.5-10.8)
[2018-12-01 03:43] LABS: ALT 11 U/L (7-52); AST 13 U/L (13-39); Albumin 4.2 g/dL (3.2-5.2); Albumin/Globulin Ratio 1.4 (1-3); Alkaline Phosphatase 63 U/L (34-104); Anion Gap 7 mmol/L (2-11); BUN/Creatinine Ratio 21.1 (8-20); Blood Urea Nitrogen 15 mg/dL (6-24); C Reactive Protein 6.65 mg/L (<8.01); CO2 Carbon Dioxide 25 mmol/L (22-32); Calcium 9.4 mg/dL (8.6-10.3); Chloride 106 mmol/L (101-111); EGFR African American 124.6 (>60); EGFR Non-African American 102.9 (>60); Globulin 2.9 g/dL (2-4); Glucose 100 mg/dL (70-100); Magnesium 2.1 mg/dL (1.9-2.7); Sodium 138 mmol/L (135-145); Total Protein 7.1 g/dL (6.4-8.9)
[2018-12-01 03:49] LABS: HCG Pregnancy < 0.60 mIU/mL
[2018-12-01 03:59] LABS: Urine Appearance Clear; Urine Bilirubin Negative (Negative); Urine Blood Negative (Negative); Urine Color Straw; Urine Glucose Negative (Negative); Urine Ketones Negative (Negative); Urine Nitrite Negative (Negative); Urine Protein Negative (Negative); Urine Specific Gravity 1.009 (1.010-1.030); Urine Urobilinogen Negative (Negative)
[2018-12-01 06:16] VITALS: BP 115/60
== END 2018-12-01 06:17 | disposition home or self-care (01) ==
LOC: ED 02:21
DX: R10.9 Unspecified abdominal pain (principal); F17.210 Nicotine dependence, cigarettes, uncomplicated; Z88.2 Allergy status to sulfonamides; Z88.8 Allergy status to other drugs, medicaments and biological substances
CPT/HCPCS: 36415; 74176; 80053; 81003; 83735; 84702; 85025; 86140; 96361; 96374; 96375; 99283; J1885; J2270; J2765

== ENCOUNTER → 2018-12-24 20:22 | Emergency (ER) | payer BC ==
[~2018-12-24 20:22] MED LIST changes: -Buffered Lidocaine 1% SYR 3ML* 3 ML/SYR SYRINGE INTRADERM ONE; -Buffered Lidocaine 1% SYR 3ML* 3 ML/SYR SYRINGE ONE; +Cyclobenzaprine TAB* 10 MG PO ONE; -Dexamethasone IV* 4 MG/ML 1 ML (4 MG) IV SLOW PU ONE; -Dexamethasone IV* 4 MG/ML 1 ML (4 MG) ONE; -Famotidine IV* 10 MG/ML 2 ML (20 mg) IV ONE; -Famotidine IV* 10 MG/ML 2 ML (20 mg) ONE; +Ibuprofen TAB* 400 MG PO ONE; -ceFAZolin 2 GM PREMIX (*) 2 GM/50 ML BAG IVPB ONE
--- NOTE | 2018-12-24 21:18 | ED ---
Back Pain - HPI Summary HPI Summary: The patient is a 23 y/o F presenting to [facility] with a chief complaint of sudden onset soreness over the left breast at the lateral ribs starting this morning. She states that the pain was present when she woke up, and it's been worsening since onset. She denies any recent trauma to the area, and she hasn't had problems with her back prior to this. The pain is aggravated by deep breathing and palpation and alleviated by rest. The pain is currently rated 10/10 in severity. She denies CP, rash, or discharge from left breast. Current some day smoker, no EtOH, no substance use. - History of Current Complaint Chief Complaint: EDBackInjuryPain Stated Complaint: RIB PAIN PER PT Time Seen by Provider: 12/24/18 21:01 Hx Obtained From: Patient Hx Last Menstrual Period: pt on nexplanon and states not getting a menses Onset/Duration: Sudden Onset, Lasting Hours, Still Present Onset/Duration: Started Hours Ago, Still Present Timing: Constant Back Pain Location: Is Discrete @ - left lateral ribs Severity Initially: Mild Severity Currently: Severe Pain Intensity: 10 Pain Scale Used: 0-10 Numeric Character: Aching Aggravating Symptom(s): Other - palpation, deep breathing Alleviating Symptom(s): Rest Associated Signs And Symptoms: Positive: Other - NEGATIVE: CP, discharge from left breast, rash - Allergies/Home Medications Allergies/Adverse Reactions: Allergies Allergy/AdvReac Type Severity Reaction Status Date / Time carbamazepine Allergy Rash Verified 12/24/18 20:26 oxcarbazepine Allergy Rash Verified 12/24/18 20:26 Sulfa (Sulfonamide Allergy Rash Verified 12/24/18 20:26 Antibiotics) PMH/Surg Hx/FS Hx/Imm Hx Endocrine/Hematology History: Denies: Hx Diabetes, Hx Thyroid Disease Cardiovascular History: Denies: Hx Congestive Heart Failure, Hx Hypertension, Hx Pacemaker/ICD Respiratory History: Denies: Hx Asthma, Hx Chronic Obstructive Pulmonary Disease (COPD) GI History: Denies: Hx Ulcer History: Denies: Hx Dialysis, Hx Renal Disease Sensory History: Reports: Hx Contacts or Glasses - GLASSES Denies: Hx Hearing Aid Opthamlomology History: Reports: Hx Contacts or Glasses - GLASSES Neurological History: Reports: Hx Migraine - FEW TIMES PER MONTH TREATS WITH EXCEDRIN MIGRAINE, Hx Seizures - FOCAL SEIZURES- LAST ONE YEARS AGO- ON MEDICATION FOR Denies: Other Neuro Impairments/Disorders Psychiatric History: Denies: Hx Eating Disorder, Hx Panic Disorder - Surgical History Surgery Procedure, Year, and Place: R knee Hx Anesthesia Reactions: No - Immunization History Date of Influenza Vaccine: 1586-6926 season Infectious Disease History: No Infectious Disease History: Denies: Hx Hepatitis, Hx Human Immunodeficiency Virus (HIV), Traveled Outside the [place] in Last 30 Days - Family History Known Family History: Negative: Hypertension, Diabetes, Blood Disorder - Social History Alcohol Use: Rare Hx Substance Use: No Substance Use Type: Reports: None Substance Use Comment - Amount & Last Used: denies Hx Tobacco Use: Yes Smoking Status (MU): Current Some Day Smoker Review of Systems Negative: Chest Pain Positive: Other - pain at lateral ribs on left Positive: Other - NEGATIVE: discharge from left breast. Negative: Rash All Other Systems Reviewed And Are Negative: Yes Physical Exam - Summary Physical Exam Summary: Appearance: Well appearing, no pain distress Skin: warm, dry, reflects adequate perfusion Head/face: normal Eyes: EOMI, SUZANNE ENT: normal Neck: supple, non-tender Respiratory: CTA, breath sounds present Cardiovascular: RRR, pulses symmetrical Abdomen: non-tender, soft Musculoskeletal: normal, strength/ROM intact Neuro: normal, sensory motor intact, A&Ox3 Triage Information Reviewed: Yes Vital Signs On Initial Exam: Initial Vitals Temp Pulse Resp BP Pulse Ox 97.6 F 107 18 141/84 99 12/24/18 20:24 12/24/18 20:24 12/24/18 20:24 12/24/18 20:24 12/24/18 20:24 Vital Signs Reviewed: Yes Diagnostics - Vital Signs Vital Signs Temp Pulse Resp BP Pulse Ox 12/24/18 20:24 97.6 F 107 18 141/84 99 - Laboratory Lab Statement: Any lab studies that have been ordered have been reviewed, and results considered in the medical decision making process. - Radiology L Ribs with Chest XR Radiology Interpretation Completed By: Radiologist Summary of Radiographic Findings: Negative for fracture. ED physician has reviewed this radiology report. Re-Evaluation - Re-Evaluation First Eval Re-Evaluation Time: 22:15 Comment: I discussed the results of the XR with the patient, and we discussed discharge. Back Pain Course/Dx - Course Assessment/Plan: The patient is a 23 y/o F presenting to [facility] with a chief complaint of sudden onset soreness over the left breast at the lateral ribs starting this morning with worsening since onset. No trauma or previous injury. Upon physical exam, the patient exhibits tenderness over the left breast. In the ED course, the patient was administered Ibuprofen and Flexeril. L Ribs with Chest XR impression is negative for fracture. She is diagnosed with left chest wall pain and muscle spasms. She will be discharged home with prescription for Ibuprofen and Flexeril and follow up with PCP in 2-3 days. She agrees with this plan and understands the need for return to the ED for any new or worsening symptoms. - Diagnoses Differential Diagnosis/HQI/PQRI: Positive: Strain, Other - pneumonia/ptx Provider Diagnoses: Left-sided chest wall pain, Muscle spasm Discharge - Sign-Out/Discharge Documenting (check all that apply): Patient Departure - Patient will be discharged home. Patient Received Moderate/Deep Sedation with Procedure: No - Discharge Plan Condition: Stable Disposition: HOME Prescriptions: Cyclobenzaprine TAB* [Flexeril 10 MG TAB*] 10 mg PO TID PRN #12 tab MDD 3 PRN Reason: Pain Cyclobenzaprine TAB* [Flexeril 10 MG TAB*] 10 mg PO TID PRN #12 tab MDD 3 PRN Reason: Pain Ibuprofen TAB* [Motrin TAB* 600 MG] 600 mg PO Q8H PRN #15 tab MDD 3 PRN Reason: Pain Ibuprofen TAB* [Motrin TAB* 600 MG] 600 mg PO Q8H PRN #15 tab MDD 3 PRN Reason: Pain Patient Education Materials: Muscle Spasm (ED), Chest Wall Pain (ED) Forms: *Work Release Referrals: Zenobia Wright MD [Primary Care Provider] - Additional Instructions: Please take medication as prescribed. Follow up with your primary care provider in 2-3 days. RETURN TO THE ED FOR ANY NEW OR WORSENING SYMPTOMS. - Billing Disposition and Condition Condition: STABLE Disposition: Home - Attestation Statements Document Initiated by Scribe: Yes Documenting Scribe: Prachi Nelson Provider For Whom Kelley is Documenting (Include Credential): Dr. Navneet Patel MD Scribe Attestation: Prachi Noriega scribed for Dr. Navneet Patel MD on 12/25/18 at 0257. Scribe Documentation Reviewed: Yes Provider Attestation: The documentation as recorded by the scribe, Prachi Nelson accurately reflects the service I personally performed and the decisions made by me, Dr. Navneet Patel MD Status of Scribe Document: Viewed
[2018-12-24 22:38] VITALS: BP 113/61
== END | disposition home or self-care (01) ==
LOC: ED 20:22
DX: R07.89 Other chest pain (principal); M62.838 Other muscle spasm; G40.209 Localization-related (focal) (partial) symptomatic epilepsy and epileptic syndromes with complex partial seizures, not intractable, without status epilepticus; Z88.2 Allergy status to sulfonamides; Z88.8 Allergy status to other drugs, medicaments and biological substances
CPT/HCPCS: 99282; A9270-GY

== ENCOUNTER 2019-03-24 22:30 | Emergency (ER) | payer SELFPAY ==
[2019-03-24] MEDS ORDERED: Ibuprofen TAB* 600 MG PO ONE (23:10)
--- NOTE | 2019-03-24 23:43 | ED ---
Lower Extremity - HPI Summary HPI Summary: Patient complains of left ankle and foot pain after twisting it today. Denies any other pain in her symptoms. Patient ambulating with crutches - History of Current Complaint Chief Complaint: EDExtremityLower Stated Complaint: LEFT ANKLE/FOOT INJURY PER PT Time Seen by Provider: 03/24/19 22:44 Hx Obtained From: Patient Hx Last Menstrual Period: pt on nexplanon and states not getting a menses Mechanism Of Injury: Twisted Onset of Pain: Immediate Onset/Duration: Hours Severity Initially: Severe Severity Currently: Severe Pain Intensity: 9 Pain Scale Used: 0-10 Numeric Timing: Constant Location: Is Discrete @ Character Of Pain: Dull, Aching, Throbbing Associated Signs And Symptoms: Positive: Negative Aggravating Factor(s): Standing, Ambulation, Movement, Weight Bearing Alleviating Factor(s): Rest, Ice Able to Bear Weight: Yes - Allergies/Home Medications Allergies/Adverse Reactions: Allergies Allergy/AdvReac Type Severity Reaction Status Date / Time carbamazepine Allergy Rash Verified 12/24/18 20:26 oxcarbazepine Allergy Rash Verified 12/24/18 20:26 Sulfa (Sulfonamide Allergy Rash Verified 12/24/18 20:26 Antibiotics) PMH/Surg Hx/FS Hx/Imm Hx Endocrine/Hematology History: Denies: Hx Diabetes, Hx Thyroid Disease Cardiovascular History: Denies: Hx Congestive Heart Failure, Hx Hypertension, Hx Pacemaker/ICD Respiratory History: Denies: Hx Asthma, Hx Chronic Obstructive Pulmonary Disease (COPD) GI History: Denies: Hx Ulcer History: Denies: Hx Dialysis, Hx Renal Disease Sensory History: Reports: Hx Contacts or Glasses - GLASSES Denies: Hx Hearing Aid Opthamlomology History: Reports: Hx Contacts or Glasses - GLASSES Neurological History: Reports: Hx Migraine - FEW TIMES PER MONTH TREATS WITH EXCEDRIN MIGRAINE, Hx Seizures - FOCAL SEIZURES- LAST ONE YEARS AGO- ON MEDICATION FOR Denies: Other Neuro Impairments/Disorders Psychiatric History: Denies: Hx Eating Disorder, Hx Panic Disorder - Surgical History Surgery Procedure, Year, and Place: R knee Hx Anesthesia Reactions: No - Immunization History Date of Influenza Vaccine: 6847-7684 season Infectious Disease History: No Infectious Disease History: Denies: Hx Hepatitis, Hx Human Immunodeficiency Virus (HIV), Traveled Outside the [place] in Last 30 Days - Family History Known Family History: Negative: Hypertension, Diabetes, Blood Disorder - Social History Alcohol Use: Rare Hx Substance Use: No Substance Use Type: Reports: None Substance Use Comment - Amount & Last Used: denies Hx Tobacco Use: Yes Smoking Status (MU): Current Some Day Smoker Review of Systems Constitutional: Negative Eyes: Negative ENT: Negative Cardiovascular: Negative Respiratory: Negative Gastrointestinal: Negative Genitourinary: Negative Musculoskeletal: Other Skin: Negative Neurological: Negative Psychological: Normal All Other Systems Reviewed And Are Negative: Yes Physical Exam - Summary Physical Exam Summary: Minimal swelling to left ankle or foot. No ecchymosis, deformity, erythema noted. PMS intact distally. Calf soft nontender. Triage Information Reviewed: Yes Vital Signs On Initial Exam: Initial Vitals Temp Pulse Resp BP Pulse Ox 98.2 F 97 20 124/77 98 03/24/19 22:33 03/24/19 22:33 03/24/19 22:33 03/24/19 22:33 03/24/19 22:33 Vital Signs Reviewed: Yes Appearance: Positive: Well-Appearing Skin: Positive: Warm, Skin Color Reflects Adequate Perfusion Head/Face: Positive: Normal Head/Face Inspection Eyes: Positive: Normal Neck: Positive: Supple Respiratory/Lung Sounds: Positive: Clear to Auscultation Cardiovascular: Positive: Normal Abdomen Description: Positive: Nontender Musculoskeletal: Positive: Normal Neurological: Positive: Normal Psychiatric: Positive: Normal AVPU Assessment: Alert - [place] Coma Scale Best Eye Response: 4 - Spontaneous Best Motor Response: 6 - Obeys Commands Best Verbal Response: 5 - Oriented Coma Scale Total: 15 Diagnostics - Vital Signs Vital Signs Temp Pulse Resp BP Pulse Ox 03/24/19 22:33 98.2 F 97 20 124/77 98 - Laboratory Lab Statement: Any lab studies that have been ordered have been reviewed, and results considered in the medical decision making process. Lower Extremity Course/Dx - Course Course Of Treatment: Patient complains of left ankle and foot pain after twisting it today. Denies any other pain in her symptoms. Patient ambulating with crutches. Vital signs within normal limits. X-ray left ankle and left foot negative for fracture. Patient refused ankle gel splint.Patient insisted on boot - Diagnoses Provider Diagnoses: Ankle sprain Discharge ED - Sign-Out/Discharge Documenting (check all that apply): Patient Departure Patient Received Moderate/Deep Sedation with Procedure: No - Discharge Plan Condition: Stable Disposition: HOME Patient Education Materials: Ankle Sprain (ED), Ankle Stirrup Splint (ED) Referrals: Zenobia Wright MD [Primary Care Provider] - Vaughn Mortensen MD [Medical Doctor] - Additional Instructions: Rest. Ice 15 minutes at a time. Alternate ibuprofen 600 mg with Tylenol 650 mg every 3 hours for pain as needed. Weightbearing as tolerated. If symptoms persist more than 1 week follow-up with orthopedics Dr. Loving for further evaluation. - Billing Disposition and Condition Condition: STABLE Disposition: Home
[2019-03-25 00:36] VITALS: BP 103/70
== END 2019-03-25 00:35 | disposition home or self-care (01) ==
LOC: ED 22:30
DX: S93.402A Sprain of unspecified ligament of left ankle, initial encounter (principal); X58.XXXA Exposure to other specified factors, initial encounter; Y92.9 Unspecified place or not applicable; F17.200 Nicotine dependence, unspecified, uncomplicated; Z79.899 Other long term (current) drug therapy; Z88.2 Allergy status to sulfonamides; Z88.8 Allergy status to other drugs, medicaments and biological substances
CPT/HCPCS: 99282

== ENCOUNTER 2019-03-28 19:43 | Emergency (ER) | payer SELFPAY ==
--- NOTE | 2019-03-28 20:25 | ED ---
Lower Extremity - HPI Summary HPI Summary: This pt is a 23 y/o female presenting to [facility] c/o left ankle pain for the past 4 days after twisting it. Pt was seen in the ED 4 days ago where she had an XR that was negative for a fracture. She was told she had a sprain and was discharged home with a cam boot. Pt presents today with worsening left ankle pain and swelling. She notes that she also has intermittent tingling in her left foot. Her pain is aggravated with ambulation. Pt has not followed up with any other providers since her visit to the ED 4 days ago. - History of Current Complaint Chief Complaint: EDExtremityLower Stated Complaint: LT FOOT INJURY PER PT Time Seen by Provider: 03/28/19 19:59 Hx Obtained From: Patient Hx Last Menstrual Period: pt on nexplanon and states not getting a menses Mechanism Of Injury: Twisted Onset/Duration: Days Severity Currently: Severe Pain Intensity: 7 Pain Scale Used: 0-10 Numeric Timing: Lasting Days Location: Is Discrete @ - left ankle Associated Signs And Symptoms: Positive: Swelling. Negative: Fever, Knee Pain Aggravating Factor(s): Ambulation Alleviating Factor(s): Rest Able to Bear Weight: Yes - but painful - Allergies/Home Medications Allergies/Adverse Reactions: Allergies Allergy/AdvReac Type Severity Reaction Status Date / Time carbamazepine Allergy Rash Verified 03/28/19 19:47 oxcarbazepine Allergy Rash Verified 03/28/19 19:47 Sulfa (Sulfonamide Allergy Rash Verified 03/28/19 19:47 Antibiotics) PMH/Surg Hx/FS Hx/Imm Hx Endocrine/Hematology History: Denies: Hx Diabetes, Hx Thyroid Disease Cardiovascular History: Denies: Hx Congestive Heart Failure, Hx Hypertension, Hx Pacemaker/ICD Respiratory History: Denies: Hx Asthma, Hx Chronic Obstructive Pulmonary Disease (COPD) GI History: Denies: Hx Ulcer History: Denies: Hx Dialysis, Hx Renal Disease Sensory History: Reports: Hx Contacts or Glasses - GLASSES Denies: Hx Hearing Aid Opthamlomology History: Reports: Hx Contacts or Glasses - GLASSES Neurological History: Reports: Hx Migraine - FEW TIMES PER MONTH TREATS WITH EXCEDRIN MIGRAINE, Hx Seizures - FOCAL SEIZURES- LAST ONE YEARS AGO- ON MEDICATION FOR Denies: Other Neuro Impairments/Disorders Psychiatric History: Denies: Hx Eating Disorder, Hx Panic Disorder - Surgical History Surgery Procedure, Year, and Place: R knee Hx Anesthesia Reactions: No - Immunization History Date of Influenza Vaccine: 1408-4065 season Infectious Disease History: No Infectious Disease History: Denies: Hx Hepatitis, Hx Human Immunodeficiency Virus (HIV), Traveled Outside the [place] in Last 30 Days - Family History Known Family History: Negative: Hypertension, Diabetes, Blood Disorder - Social History Alcohol Use: Rare Hx Substance Use: No Substance Use Type: Reports: None Substance Use Comment - Amount & Last Used: denies Hx Tobacco Use: Yes Smoking Status (MU): Current Some Day Smoker Review of Systems Negative: Fever, Chills ENT: Negative Cardiovascular: Negative Musculoskeletal: Other - POSITIVE: left ankle pain Positive: Edema - left ankle Positive: Paresthesia - intermittent All Other Systems Reviewed And Are Negative: Yes Physical Exam - Summary Physical Exam Summary: Constitutional: Well-developed, Well-nourished, Alert. (-) Distressed Skin: Warm, Dry HENT: Normocephalic; Atraumatic Cardio: skin well perfused Pulmonary/Chest wall: EWOB on RA Musculoskeletal: Left lower extremity: patient has tenderness to the lateral and medial malleoli with mild soft tissue swelling on the left. 2+ DP pulse. Neuro: Alert, Oriented x3 Psych: Mood and affect Normal Triage Information Reviewed: Yes Vital Signs On Initial Exam: Initial Vitals Temp Pulse Resp BP Pulse Ox 98.1 F 89 15 123/87 99 03/28/19 19:45 03/28/19 19:45 03/28/19 19:45 03/28/19 19:45 03/28/19 19:45 Vital Signs Reviewed: Yes Diagnostics - Vital Signs Vital Signs Temp Pulse Resp BP Pulse Ox 03/28/19 19:45 98.1 F 89 15 123/87 99 - Laboratory Lab Statement: Any lab studies that have been ordered have been reviewed, and results considered in the medical decision making process. Lower Extremity Course/Dx - Course Course Of Treatment: 23 y/o F w recent L ankle sprain p/w continued pain. - d/ w patient course of healing which could be weeks. Given work excuse note for light duty/off until cleared. - Diagnoses Provider Diagnoses: Ankle sprain Discharge ED - Sign-Out/Discharge Documenting (check all that apply): Patient Departure - Discharge home Patient Received Moderate/Deep Sedation with Procedure: No - Discharge Plan Condition: Stable Disposition: HOME Patient Education Materials: Ankle Sprain (DC) Forms: *Work Release Referrals: Zenobia Wright MD [Primary Care Provider] - Additional Instructions: You were seen in the emergency department for an ankle sprain. Please take 800 mg of Motrin as needed for severe pain. Please keep the extremity elevated to help with swelling and apply ice for pain. Please use crutches if you're able to walk. Please follow-up with your doctor to clear you for work - Billing Disposition and Condition Condition: STABLE Disposition: Home - Attestation Statements Document Initiated by Kelley: Yes Documenting Scribe: Mare Smith Provider For Whom Kelley is Documenting (Include Credential): Leon Tobias MD Scribe Attestation: Mare Noriega, scribed for Leon Tobias MD on 03/28/19 at 2326. Scribe Documentation Reviewed: Yes Provider Attestation: The documentation as recorded by the Mare gonzáles accurately reflects the service I personally performed and the decisions made by Leon lopes MD Status of Scribe Document: Viewed
[2019-03-28 21:02] VITALS: BP 121/81
== END 2019-03-28 21:00 | disposition home or self-care (01) ==
LOC: ED 19:43
DX: S93.402A Sprain of unspecified ligament of left ankle, initial encounter (principal); X58.XXXA Exposure to other specified factors, initial encounter; Y92.9 Unspecified place or not applicable; F17.200 Nicotine dependence, unspecified, uncomplicated; Z79.899 Other long term (current) drug therapy; Z88.2 Allergy status to sulfonamides; Z88.8 Allergy status to other drugs, medicaments and biological substances
CPT/HCPCS: 99282

== ENCOUNTER 2019-04-20 22:32 | Emergency (ER) | payer SELFPAY ==
--- NOTE | 2019-04-20 23:12 | UC ---
- Allergy/Home Medications Allergies/Adverse Reactions: Allergies Allergy/AdvReac Type Severity Reaction Status Date / Time carbamazepine Allergy Rash Verified 03/28/19 19:47 oxcarbazepine Allergy Rash Verified 03/28/19 19:47 Sulfa (Sulfonamide Allergy Rash Verified 03/28/19 19:47 Antibiotics) Home Medications: Home Medications Etonogestrel [Nexplanon] 1 applic INTRADERM ONCE 04/20/19 [History Confirmed ] PMH/Surg Hx/FS Hx/Imm Hx - Surgical History Surgical History: Yes Surgery Procedure, Year, and Place: R knee - Family History Known Family History: Negative: Hypertension, Diabetes, Blood Disorder - Social History Alcohol Use: Occasionally Substance Use Type: None Substance Use Comment - Amount & Last Used: denies Smoking Status (MU): Former Smoker Household Exposure Type: Cigarettes Physical Exam Vital Signs: Initial Vital Signs Temp 97.9 F 04/20/19 22:43 Pulse 84 04/20/19 22:43 Resp 18 04/20/19 22:43 BP 128/77 04/20/19 22:43 Pulse Ox 100 04/20/19 22:43 Breast Pain Course/Dx - Differential Diagnoses Differential Diagnosis/HQI/PQRI: Breast Abscess, Breast Mass, Candidia Dermatitis, Fibrocystic Breast Disease, - Diagnoses Provider Diagnoses: Breast tenderness Discharge ED - Sign-Out/Discharge Documenting (check all that apply): Patient Departure Patient Received Moderate/Deep Sedation with Procedure: No - Discharge Plan Condition: Good Disposition: HOME Referrals: Zenobia Wright MD [Primary Care Provider] - La Bradshaw MD [Medical Doctor] - Additional Instructions: Call Dr. Bradshaw's office tomorrow to schedule a close follow up appointment for further evaluation Recommend ibuprofen for pain as directed Wear supportive bras Can apply warm or cool compress Return to ER for swelling, lumps, redness, drainage or if concerned - Billing Disposition and Condition Condition: GOOD Disposition: Home
--- OUTSIDE RECORDS SUMMARY | 2019-04-20 23:22 | XMS REPORT | Continuity of Care Document ---
:1995 External Reference #:[id number] Author Name Shannan Nova M.D. (transmitted by agent of provider Steffi Fonseca) Address [address] [place] [address] Care Team Providers Name Role Phone Zenobia Wright MD - Family Care Team Information Civil Lawyer [phone] Medicine Problems Active Problems Provider Date Migraine without aura Rosalinda Wood M.D. Onset: 10/17/2015 Epilepsy Rosalinda Wood M.D. 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 Onset: 04/01/2019 Knee joint effusion Shannan Nova M.D. Onset: 08/06/2016 Knee pain Shannan Nova M.D. Onset: 08/06/2016 Sprain of lateral collateral ligament of Shannan Nova M.D. Onset: 06/04/2016 knee Social History Type Date Description Comments Sex Unknown ETOH Use Occasionally consumes alcohol Tobacco Use Start: Unknown Patient Vapes Smoking Status Reviewed: 04/01/19 Patient Vapes Exercise Type/Frequency Exercises sporadically Allergies, Adverse Reactions, Alerts Active Allergies Reaction Severity Comments Date Sulfa Antibiotics 06/21/2013 Tegretol 06/21/2013 Trileptal 06/21/2013 Inactive Allergies NKDA 06/21/2013 Medications Active Medications SIG Qnty Indications Ordering Provider Date Naproxen 1 tablet with 90tabs M25.572 Shannan Nova M.D. 04/01/2019 500mg Tablets food by mouth twice a day Topiramate 1 tab by mouth 60tabs Gilmer Lynn, 06/22/2012 100mg twice a day M.DShani Tablets Excedrin Migraine as needed Unknown [phone] Tablets Prozac 1 tab a day Unknown Nexplanon Unknown 68mg Implant Medications Administered in Office Medication SIG Qnty Indications Ordering Provider Date Depomedrol 40MG Vaughn Mortensen MD 07/21/2018 Injection Immunizations Description No Information Available Vital Signs Date Vital Result Comment 04/01/2019 9:41am Height 62 inches 5'2" Weight 194.00 lb Heart Rate 64 /min BP Systolic 106 mmHg BP Diastolic 70 mmHg Respiratory Rate 16 /min Body Temperature 97.0 F Pain Level 6 BMI (Body Mass Index) 35.5 kg/m2 07/21/2018 3:30pm Height 62 inches 5'2" Heart Rate 89 /min BP Systolic 118 mmHg BP Diastolic 70 mmHg Respiratory Rate 17 /min Pain Level 9 Results Description No Information Available Procedures Description No Information Available Medical Devices Description No Information Available Encounters Description No Information Available Assessments Date Code Description Provider 04/01/2019 M25.572 Pain in left ankle and joints of left foot Shannan Nova M.D. 04/01/2019 M25.472 Effusion, left ankle Shannan Nova M.D. 04/01/2019 W19.xxxA Unspecified fall, initial encounter Shannan Nova M.D. 04/01/2019 S93.402A Sprain of unspecified ligament of left ankle, Shannan Nova M.D. initial encounter Plan of Treatment Future Appointment(s):04/11/2019 3:00 pm - Shannan [facility] M.D. at [facility]04/01/2019 - Shannan Nova M.D.M25.572 Pain in left ankle and joints of left footNew Medication:Naproxen 500 mg - 1 tablet with food by mouth twice a dayFollow up:Follow up: 1 weekM25.472 Effusion, left igvsdU08.xxxA Unspecified fall, initial knxezgilaI28.402A Sprain of unspecified ligament of left ankle, initial encounter Functional Status Description No Information Available Mental Status Description No Information Available Referrals Description No Information Available
--- OUTSIDE RECORDS SUMMARY | 2019-04-20 23:22 | XMS REPORT | Continuity of Care Document ---
:1995 External Reference #:[id number] Author Name Shannan Nova M.D. (transmitted by agent of provider Steffi Fonseca) Address [address] [place] [address] Care Team Providers Name Role Phone Zenobia Wright MD - Family Care Team Information Wire Strander [phone] Medicine Problems Active Problems Provider Date Migraine [...] Start: Unknown Patient Vapes Smoking Status Reviewed: 04/11/19 Patient Vapes Exercise Type/Frequency Exercises sporadically Allergies, [...] M.DShani Tablets Excedrin Migraine as needed Unknown [phone] Tablets Prozac 1 tab a day Unknown Nexplanon Unknown 68mg Implant Medications Administered in Office Medication SIG Qnty Indications Ordering Provider Date Depomedrol 40MG Vaughn Mortensen MD 07/21/2018 Injection Immunizations Description No Information Available Vital Signs Date Vital Result Comment 04/11/2019 3:09pm Height 62 inches 5'2" Weight 194.00 lb Heart Rate 89 /min BP Systolic 130 mmHg BP Diastolic 82 mmHg Body Temperature 97.1 F Pain Level 2 BMI (Body Mass Index) 35.5 kg/m2 04/01/2019 9:41am Height 62 inches 5'2" Weight 194.00 lb Heart Rate 64 /min BP Systolic 106 mmHg BP Diastolic 70 mmHg Respiratory Rate 16 /min Body Temperature 97.0 F Pain Level 6 BMI (Body Mass Index) 35.5 kg/m2 Results Description No Information Available Procedures Description No Information Available Medical Devices Description No Information Available Encounters Type Date Location Provider Dx Diagnosis Office Visit 04/11/2019 Orthopedic Shannan Nova, M25.572 Pain in left 3[facility] and joints of left foot M25.472 Effusion, left ankle W19.xxxA Unspecified fall, initial encounter S93.402D Sprain of unspecified ligament of left ankle, subs encntr Assessments Date Code Description Provider 04/11/2019 M25.572 Pain in left ankle and joints of left foot Shannan Nova M.D. 04/11/2019 M25.472 Effusion, left ankle Shannan Nova M.D. 04/11/2019 W19.xxxA Unspecified fall, initial encounter Shannan Nova M.D. 04/11/2019 S93.402D Sprain of unspecified ligament of left ankle, Shannan Nova M.D. subsequent encounter 04/01/2019 M25.572 Pain in left ankle and joints of left foot Shannan Nova M.D. 04/01/2019 M25.472 Effusion, left ankle Shannan Nova M.D. 04/01/2019 W19.xxxA Unspecified fall, initial encounter Shannan Nova M.D. 04/01/2019 S93.402A Sprain of unspecified ligament of left ankle, Shannan Nova M.D. initial encounter Plan of Treatment 04/11/2019 - Shannan Nova M.D.M25.572 Pain in left ankle and joints of left footFollow up:Follow up: prnM25.472 Effusion, left zmllpM09.xxxA Unspecified fall, initial exclxwuesQ92.402D Sprain of unspecified ligament of left ankle, subsequent encounter Functional Status Description No Information Available Mental Status Description No Information Available Referrals Description No Information Available
[2019-04-20 23:35] VITALS: BP 113/64
--- NOTE | 2019-04-21 00:45 | UC ---
- HPI Summary HPI Summary: Patient is a 23-year-old female who presents to emergency department for bilateral breast tenderness times one week. Patient denies mass, redness, nipple discharge, fever. Patient denies any injuries or heavy lifting. No significant past medical history. Patient has an implanon in place. Symptoms are mild in severity. Touching area makes symptoms worse. Rest makes symptoms better. - History of Current Complaint Hx Obtained From: Patient - Allergy/Home Medications Allergies/Adverse Reactions: Allergies Allergy/AdvReac Type Severity Reaction Status Date / Time carbamazepine Allergy Rash Verified 03/28/19 19:47 oxcarbazepine Allergy Rash Verified 03/28/19 19:47 Sulfa (Sulfonamide Allergy Rash Verified 03/28/19 19:47 Antibiotics) Home Medications: Home Medications Etonogestrel [Nexplanon] 1 applic INTRADERM ONCE 04/20/19 [History Confirmed ] PMH/Surg Hx/FS Hx/Imm Hx Previously Healthy: Yes - Surgical History Surgical History: Yes Surgery Procedure, Year, and Place: R knee - Family History Known Family History: Positive: Other - Negative cancer Negative: Hypertension, Diabetes, Blood Disorder - Social History Occupation: Employed Full-time Lives: With Family Alcohol Use: Occasionally Substance Use Type: None Substance Use Comment - Amount & Last Used: denies Smoking Status (MU): Former Smoker Household Exposure Type: Cigarettes Review of Systems All Other Systems Reviewed And Are Negative: Yes Constitutional: Positive: Negative. Negative: Fever Skin: Positive: Negative. Negative: Rash Respiratory: Positive: Negative. Negative: Cough Musculoskeletal: Positive: Negative Is Patient Immunocompromised?: No Physical Exam Triage Information Reviewed: Yes Appearance: Well-Appearing - Pt. lying in bed in NAD. Vital Signs: Initial Vital Signs Temp 97.9 F 04/20/19 22:43 Pulse 84 04/20/19 22:43 Resp 18 04/20/19 22:43 BP 128/77 04/20/19 22:43 Pulse Ox 100 04/20/19 22:43 Vital Signs Reviewed: Yes Eyes: Positive: Conjunctiva Clear Neck exam: Normal Neck: Positive: Supple, No Lymphadenopathy Respiratory: Positive: Lungs clear, Other: - [facility] Healing area of ecchymosis noted to right inner breast pt. states is from a "garza." No palpable masses bilaterally. No erythema or nipple discharge. No lymphadenopathy to axilla or supra clavicular region. Cardiovascular: Positive: RRR Neurological Exam: Normal Skin Exam: Normal Breast Pain Course/Dx - Course Course Of Treatment: Patient presenting with complaints of breast tenderness. Exam is unremarkable. We'll have patient follow up with [facility] for further evaluation of breast tenderness. Advised return to ER for fever, mass, drainage, redness or if concerned. Patient understands and agrees with plan. - Diagnoses Provider Diagnoses: Breast tenderness Discharge ED - Sign-Out/Discharge Documenting (check all that apply): Patient Departure Patient Received Moderate/Deep Sedation with Procedure: No - Discharge Plan Condition: Good Disposition: HOME Referrals: La Bradshaw MD [Medical Doctor] - Zenobia Wright MD [Primary Care Provider] - Additional Instructions: Call Dr. Bradshaw's office tomorrow to schedule a close follow up appointment for further evaluation Recommend ibuprofen for pain as directed Wear supportive bras Can apply warm or cool compress Return to ER for swelling, lumps, redness, drainage or if concerned - Billing Disposition and Condition Condition: GOOD Disposition: Home
== END 2019-04-20 23:33 | disposition home or self-care (01) ==
LOC: ED 22:32
DX: N64.4 Mastodynia (principal); Z87.891 Personal history of nicotine dependence; Z88.2 Allergy status to sulfonamides
CPT/HCPCS: 99282

== ENCOUNTER 2019-05-17 13:31 | Emergency (ER) | payer SELFPAY ==
--- NOTE | 2019-05-17 15:37 | ED ---
Dizziness - HPI Summary HPI Summary: Pt is a 23 y/o F presenting to the ED with a chief complaint of weakness. She states she was driving her car around 1330 when she began to feel very shakey and generally weak, so she came into the ED. She has never felt this way before. She denies vomiting, diarrhea, CP, SOB, or palpitations. 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 She denies excess caffeine intake today, alcohol intake, or drug use. She does vape. - History Of Current Complaint Chief Complaint: EDGeneral Stated Complaint: SHAKY/DIZZY/BLURRY VISION PER PT Time Seen by Provider: 05/17/19 15:09 Hx Obtained From: Patient Onset/Duration: Still Present, Suddenly Timing: Constant Severity Initially: Moderate Severity Currently: Moderate Character: Weak Aggravating Factor(s): Nothing Alleviating Factor(s): Nothing Associated Signs And Symptoms: Negative: Vomiting, Diarrhea, Chest Pain, SOB, Palpitations - Allergies/Home Medications Allergies/Adverse Reactions: Allergies Allergy/AdvReac Type Severity Reaction Status Date / Time carbamazepine Allergy Rash Verified 05/17/19 13:52 oxcarbazepine Allergy Rash Verified 05/17/19 13:52 Sulfa (Sulfonamide Allergy Rash Verified 05/17/19 13:52 Antibiotics) Home Medications: Home Medications Naproxen Sodium [Naproxen ER 500 MG TAB] 500 mg PO BID 05/17/19 [History Confirmed 05/17/19] PMH/Surg Hx/FS Hx/Imm Hx Previously Healthy: Yes Endocrine/Hematology History: Denies: Hx Diabetes, Hx Thyroid Disease Cardiovascular History: Denies: Hx Congestive Heart Failure, Hx Hypertension, Hx Pacemaker/ICD Respiratory History: Denies: Hx Asthma, Hx Chronic Obstructive Pulmonary Disease (COPD) GI History: Denies: Hx Ulcer History: Denies: Hx Dialysis, Hx Renal Disease Sensory History: Reports: Hx Contacts or Glasses - GLASSES Denies: Hx Hearing Aid Opthamlomology History: Reports: Hx Contacts or Glasses - GLASSES Neurological History: Reports: Hx Migraine - FEW TIMES PER MONTH TREATS WITH EXCEDRIN MIGRAINE, Hx Seizures - FOCAL SEIZURES- LAST ONE YEARS AGO- ON MEDICATION FOR Denies: Other Neuro Impairments/Disorders Psychiatric History: Denies: Hx Eating Disorder, Hx Panic Disorder - Surgical History Surgery Procedure, Year, and Place: R knee Hx Anesthesia Reactions: No - Immunization History Date of Influenza Vaccine: 9457-2210 season Infectious Disease History: No Infectious Disease History: Denies: Hx Hepatitis, Hx Human Immunodeficiency Virus (HIV), Traveled Outside the [place] in Last 30 Days - Family History Known Family History: Positive: Other - Negative cancer Negative: Hypertension, Diabetes, Blood Disorder - Social History Alcohol Use: Occasionally Hx Substance Use: No Substance Use Type: Reports: None Substance Use Comment - Amount & Last Used: denies Hx Tobacco Use: Yes Smoking Status (MU): Former Smoker Review of Systems Negative: Palpitations, Chest Pain Negative: Shortness Of Breath Negative: Vomiting, Diarrhea Neurological: Other - shaking Positive: Weakness All Other Systems Reviewed And Are Negative: Yes Physical Exam - Summary Physical Exam Summary: Constitutional: Well-developed, Well-nourished, Alert. (-) Distressed Skin: Warm, Dry HENT: Normocephalic; Atraumatic Eyes: Conjunctiva normal Neck: Musculoskeletal ROM normal neck. (-) JVD, (-) Stridor, (-) Tracheal deviation Cardio: Rhythm regular, rate normal, Heart sounds normal; Intact distal pulses. Radial pulses are 2+ and symmetric. (-) Murmur Pulmonary/Chest wall: Effort normal. (-) Respiratory distress, (-) Wheezes, (-) Rales Abd: Soft. (-) Tenderness, (-) Distension, (-) Guarding, (-) Rebound Musculoskeletal: (-) Edema Lymph: (-) Cervical adenopathy Neuro: Alert, Oriented x3, Strength normal, Cranial nerves II-XII are grossly intact. (-) Dysmetria, (-) Nystagmus, (-) Ataxia by finger to nose testing, (-) Sensory deficit. Psych: Mood and affect Normal Triage Information Reviewed: Yes Vital Signs On Initial Exam: Initial Vitals Temp Pulse Resp BP Pulse Ox 100.1 F 92 20 124/86 100 05/17/19 13:49 05/17/19 13:49 05/17/19 13:49 05/17/19 13:49 05/17/19 13:49 Vital Signs Reviewed: Yes Procedures - Sedation Patient Received Moderate/Deep Sedation with Procedure: No Diagnostics - Vital Signs Vital Signs Temp Pulse Resp BP Pulse Ox 05/17/19 13:49 100.1 F 92 20 124/86 100 - Laboratory Lab Statement: Any lab studies that have been ordered have been reviewed, and results considered in the medical decision making process. - EKG 1545 Cardiac Rate: NL - 78bpm EKG Rhythm: Sinus Rhythm ST Segment: Normal Ectopy: None Summary of EKG Findings: EKG at 1545 shows NSR at 78bpm with no STEMI. ED physician has reviewed and interpreted this report. Dizzy Course/Dx - Course Course Of Treatment: Patient is here with an episode of feeling generalized weakness and tremulous. Patient is overall well-appearing upon examination here. Patient Surette symptoms like this before. Patient had a glucose checked and it was normal. Patient EKG which showed no evidence of arrhythmia. Patient clinically did not have any emergent condition so she was discharged. - Diagnoses Provider Diagnoses: Weakness, Shakiness Discharge ED - Sign-Out/Discharge Documenting (check all that apply): Patient Departure - Discharge Plan Condition: Stable Disposition: HOME Patient Education Materials: Weakness (ED) Forms: *Work Release Referrals: [facility] [Outside] Additional Instructions: Please follow up with your primary care provider within the next 1-3 days. Make sure you're drinking enough water and that your meals are balanced. Return to the emergency department with any new or worsening symptoms. - Billing Disposition and Condition Condition: STABLE Disposition: Home - Attestation Statements Document Initiated by Kelley: Yes Documenting Scribe: Anaya Bowen Provider For Whom Kelley is Documenting (Include Credential): Santos Brown MD. Scribe Attestation: Anaya Noriega scribed for Santos Brown MD. on 05/17/19 at 2141. Scribe Documentation Reviewed: Yes Provider Attestation: The documentation as recorded by the Anaya gonzáles accurately reflects the service I personally performed and the decisions made by , Santos Brown MD. Status of Scribe Document: Viewed
[2019-05-17 15:59] VITALS: BP 124/71
== END 2019-05-17 15:58 | disposition home or self-care (01) ==
LOC: ED 13:31
DX: R53.1 Weakness (principal); R25.1 Tremor, unspecified; Z87.891 Personal history of nicotine dependence
CPT/HCPCS: 93005; 96374; 99282

== ENCOUNTER 2019-07-03 23:20 | Emergency (ER) | payer BC ==
[2019-07-03] MEDS ORDERED: Acetaminophen TAB* 325 MG PO ONE (23:52)
--- NOTE | 2019-07-04 00:39 | ED ---
Lower Extremity - HPI Summary HPI Summary: 23-year-old female presents with right knee pain today. She states she fell onto her right knee. She states that she has been unable to ambulate on the area. States that it feel like that knee was going to give out earlier. She denies any numbness or tingling. States that she's had surgery on the knee due to extra tissue. She denies any ankle pain. States pain does radiate up thigh. Denies any hip pain. Do not hit her head. No loss consciousness. Hasn 't taken anything for the pain. - History of Current Complaint Chief Complaint: EDExtremityLower Stated Complaint: FELL PE PT Time Seen by Provider: 07/03/19 23:37 Hx Last Menstrual Period: pt on nexplanon and states not getting a menses Pain Intensity: 10 - Allergies/Home Medications Allergies/Adverse Reactions: Allergies Allergy/AdvReac Type Severity Reaction Status Date / Time carbamazepine Allergy Rash Verified 07/03/19 23:23 oxcarbazepine Allergy Rash Verified 07/03/19 23:23 Sulfa (Sulfonamide Allergy Rash Verified 07/03/19 23:23 Antibiotics) PMH/Surg Hx/FS Hx/Imm Hx Endocrine/Hematology History: Denies: Hx Diabetes, Hx Thyroid Disease Cardiovascular History: Denies: Hx Congestive Heart Failure, Hx Hypertension, Hx Pacemaker/ICD Respiratory History: Denies: Hx Asthma, Hx Chronic Obstructive Pulmonary Disease (COPD) GI History: Denies: Hx Ulcer History: Denies: Hx Dialysis, Hx Renal Disease Sensory History: Reports: Hx Contacts or Glasses - GLASSES Denies: Hx Hearing Aid Opthamlomology History: Reports: Hx Contacts or Glasses - GLASSES Neurological History: Reports: Hx Migraine - FEW TIMES PER MONTH TREATS WITH EXCEDRIN MIGRAINE, Hx Seizures - FOCAL SEIZURES- LAST ONE YEARS AGO- ON MEDICATION FOR Denies: Other Neuro Impairments/Disorders Psychiatric History: Denies: Hx Eating Disorder, Hx Panic Disorder - Surgical History Surgery Procedure, Year, and Place: R knee Hx Anesthesia Reactions: No - Immunization History Date of Influenza Vaccine: 2896-9864 season Infectious Disease History: No Infectious Disease History: Denies: Hx Hepatitis, Hx Human Immunodeficiency Virus (HIV), Traveled Outside the [place] in Last 30 Days - Family History Known Family History: Positive: Other - Negative cancer Negative: Hypertension, Diabetes, Blood Disorder - Social History Alcohol Use: Occasionally Hx Substance Use: No Substance Use Type: Reports: None Substance Use Comment - Amount & Last Used: denies Hx Tobacco Use: Yes Smoking Status (MU): Current Some Day Smoker Review of Systems Negative: Fever Negative: Chest Pain Negative: Shortness Of Breath Positive: Myalgia - right knee pain All Other Systems Reviewed And Are Negative: Yes Physical Exam Triage Information Reviewed: Yes Vital Signs On Initial Exam: Initial Vitals Temp Pulse Resp BP Pulse Ox 97.1 F 87 15 140/83 99 07/03/19 23:22 07/03/19 23:22 07/03/19 23:22 07/03/19 23:22 07/03/19 23:22 Vital Signs Reviewed: Yes Appearance: Positive: Well-Appearing Skin: Positive: Warm, Dry Head/Face: Positive: Normal Head/Face Inspection Eyes: Positive: Normal, Conjunctiva Clear ENT: Positive: Pharynx normal Respiratory/Lung Sounds: Positive: Clear to Auscultation, Breath Sounds Present Cardiovascular: Positive: Normal, RRR Musculoskeletal: Positive: Other - tenderness right patella, good pulses, sensation grossly intact Neurological: Positive: Normal Psychiatric: Positive: Normal Procedures - Sedation Patient Received Moderate/Deep Sedation with Procedure: No Diagnostics - Vital Signs Vital Signs Temp Pulse Resp BP Pulse Ox 07/03/19 23:22 97.1 F 87 15 140/83 99 - Laboratory Lab Statement: Any lab studies that have been ordered have been reviewed, and results considered in the medical decision making process. - Radiology knee Radiology Interpretation Completed By: ED Physician Summary of Radiographic Findings: no fracture Lower Extremity Course/Dx - Course Course Of Treatment: 23-year-old female presents with right knee pain today. She states she fell onto her right knee. She states that she has been unable to ambulate on the area. States that it feel like that knee was going to give out earlier. She denies any numbness or tingling. States that she's had surgery on the knee due to extra tissue. She denies any ankle pain. States pain does radiate up thigh. Denies any hip pain. Do not hit her head. No loss consciousness. Hasn't taken anything for the pain. On exam pain greatest over the patella. Neurovascular intact. X-ray shows - Diagnoses Differential Diagnosis/HQI/PQRI: Positive: Fracture (Closed), Sprain, Strain Provider Diagnoses: Right knee pain Discharge ED - Sign-Out/Discharge Documenting (check all that apply): Patient Departure - Discharge Plan Condition: Good Disposition: HOME Prescriptions: Ibuprofen TAB* [Motrin TAB* 800 MG] 800 mg PO Q8H #20 tab Patient Education Materials: Knee Pain (ED) Forms: *Work Release Referrals: [facility] [place] [facility] [Outside] Callum Isaac MD [Medical Doctor] - Additional Instructions: Use immobilizer Stay off knee as much as possible Ice, elevate, Ibuprofen or Tylenol every 6 hours for pain Follow up with ortho if no improvement Return to ED if develop or any new or worsening symptoms - Billing Disposition and Condition Condition: GOOD Disposition: Home
[2019-07-04 01:05] VITALS: BP 111/70
== END 2019-07-04 01:04 | disposition home or self-care (01) ==
LOC: ED 23:20
DX: M25.561 Pain in right knee (principal); Z72.0 Tobacco use; Z88.0 Allergy status to penicillin; Z88.2 Allergy status to sulfonamides
CPT/HCPCS: 99282; A9270-GY

== ENCOUNTER 2019-09-13 21:47 | Emergency (ER) | payer BC ==
--- NOTE | 2019-09-13 22:42 | ED ---
Lower Extremity - HPI Summary HPI Summary: 23 year old female presents with left ankle pain since Thursday. She states hurt her ankle at work. She has history of injury to this area. Has been using ibuprofen with minimal relief. States the pain on the lateral aspect of the ankle. No numbness or tingling. No previous fracture area. Has no medical conditions. - History of Current Complaint Chief Complaint: EDExtremityLower Stated Complaint: L FOOT PAIN PER PT Time Seen by Provider: 09/13/19 22:01 Hx Last Menstrual Period: pt on nexplanon and states not getting a menses Pain Intensity: 5 - Allergies/Home Medications Allergies/Adverse Reactions: Allergies Allergy/AdvReac Type Severity Reaction Status Date / Time carbamazepine Allergy Rash Verified 07/03/19 23:23 oxcarbazepine Allergy Rash Verified 07/03/19 23:23 Sulfa (Sulfonamide Allergy Rash Verified 07/03/19 23:23 Antibiotics) PMH/Surg Hx/FS Hx/Imm Hx Endocrine/Hematology History: Denies: Hx Diabetes, Hx Thyroid Disease Cardiovascular History: Denies: Hx Congestive Heart Failure, Hx Hypertension, Hx Pacemaker/ICD Respiratory History: Denies: Hx Asthma, Hx Chronic Obstructive Pulmonary Disease (COPD) GI History: Denies: Hx Ulcer History: Denies: Hx Dialysis, Hx Renal Disease Sensory History: Reports: Hx Contacts or Glasses - GLASSES Denies: Hx Hearing Aid Opthamlomology History: Reports: Hx Contacts or Glasses - GLASSES Neurological History: Reports: Hx Migraine - FEW TIMES PER MONTH TREATS WITH EXCEDRIN MIGRAINE, Hx Seizures - FOCAL SEIZURES- LAST ONE YEARS AGO- ON MEDICATION FOR Denies: Other Neuro Impairments/Disorders Psychiatric History: Denies: Hx Eating Disorder, Hx Panic Disorder - Surgical History Surgery Procedure, Year, and Place: R knee Hx Anesthesia Reactions: No - Immunization History Date of Influenza Vaccine: [id number] season Infectious Disease History: No Infectious Disease History: Denies: Hx Hepatitis, Hx Human Immunodeficiency Virus (HIV), Traveled Outside the [place] in Last 30 Days - Family History Known Family History: Positive: Other - Negative cancer Negative: Hypertension, Diabetes, Blood Disorder - Social History Alcohol Use: Occasionally Hx Substance Use: No Substance Use Type: Reports: Excessive Caffeine Substance Use Comment - Amount & Last Used: denies Hx Tobacco Use: Yes Smoking Status (MU): Current Some Day Smoker Review of Systems Negative: Fever Negative: Chest Pain Negative: Shortness Of Breath Positive: Myalgia - left ankle pain All Other Systems Reviewed And Are Negative: Yes Physical Exam Triage Information Reviewed: Yes Vital Signs On Initial Exam: Initial Vitals Temp Pulse Resp BP Pulse Ox 97.9 F 87 18 134/80 98 09/13/19 21:50 09/13/19 21:50 09/13/19 21:50 09/13/19 21:50 09/13/19 21:50 Vital Signs Reviewed: Yes Appearance: Positive: Well-Appearing Skin: Positive: Warm, Dry Head/Face: Positive: Normal Head/Face Inspection Eyes: Positive: Normal, Conjunctiva Clear ENT: Positive: Pharynx normal Respiratory/Lung Sounds: Positive: Clear to Auscultation, Breath Sounds Present Cardiovascular: Positive: Normal, RRR Musculoskeletal: Positive: Strength/ROM Intact - left ankle with pain, Other - tenderness lateral malleolus left ankle, good pulses, nontender left foot, sensation grossly intact Neurological: Positive: Normal Psychiatric: Positive: Normal Procedures - Sedation Patient Received Moderate/Deep Sedation with Procedure: No Diagnostics - Vital Signs Vital Signs Temp Pulse Resp BP Pulse Ox 09/13/19 21:50 97.9 F 87 18 134/80 98 - Laboratory Lab Statement: Any lab studies that have been ordered have been reviewed, and results considered in the medical decision making process. - Radiology ankle Radiology Interpretation Completed By: ED Physician Summary of Radiographic Findings: no fracture Lower Extremity Course/Dx - Course Course Of Treatment: 23 year old female presents with left ankle pain since Thursday. She states hurt her ankle at work. She has history of injury to this area. Has been using ibuprofen with minimal relief. States the pain on the lateral aspect of the ankle. No numbness or tingling. No previous fracture area. Has no medical conditions. On exam tenderness over lateral left ankle. Neurovascularly intact. X-ray shows no fracture. Told to continue ice elevate. Gave referral to occupational health. Patient understands agrees with plan. - Diagnoses Differential Diagnosis/HQI/PQRI: Positive: Fracture (Closed), Sprain, Strain Provider Diagnoses: Left ankle pain Discharge ED - Sign-Out/Discharge Documenting (check all that apply): Patient Departure - Discharge Plan Condition: Good Disposition: HOME Patient Education Materials: R.I.C.E. Treatment (ED) Forms: *Work Release Referrals: Albert Ivy MD [Medical Doctor] - Additional Instructions: Stay off ankle as much as possible Ice, elevate Ibuprofen or tyenlol every 6 hours for pain Follow up with occupational health Return to ED if develop or any new or worsening symptoms - Billing Disposition and Condition Condition: GOOD Disposition: Home
[2019-09-13 23:11] VITALS: BP 137/87
== END 2019-09-13 23:11 | disposition home or self-care (01) ==
LOC: ED 21:47
DX: M25.572 Pain in left ankle and joints of left foot (principal); G43.909 Migraine, unspecified, not intractable, without status migrainosus; R56.9 Unspecified convulsions; Z88.2 Allergy status to sulfonamides; Z88.8 Allergy status to other drugs, medicaments and biological substances; Z72.0 Tobacco use
CPT/HCPCS: 99282